=== PATIENT | female | born 1940 | race Caucasian/White ===

== ENCOUNTER 2016-05-14 08:00 | Outpatient (CLI) | payer MEDICARE, OTHER | END 2016-05-14 23:59 | DX: N39.0 Urinary tract infection, site not specified (principal) ==

== ENCOUNTER 2016-05-21 14:04 | Outpatient (CLI) | payer MEDICARE, OTHER | END 2016-05-21 14:05 | disposition home or self-care (01) | DX: N39.0 Urinary tract infection, site not specified (principal) ==

== ENCOUNTER 2016-06-01 05:10 | Emergency (ER) | payer MEDICARE, OTHER ==
[2016-06-01] MEDS ORDERED: diphenhydrAMINE INJ 50 MG/ML VIAL IVP STA (06:27)
[2016-06-01] MEDS ORDERED: diphenhydrAMINE INJ 50 MG/ML VIAL ONE ×2 (06:29→06:30)
[2016-06-01] MEDS ORDERED: IOPAMIDOL-300 100 ML VIAL IVP ONE (07:14)
[2016-06-01] MEDS ORDERED: PROMETHAZINE 25 MG TABLET PO STA (08:00)
[2016-06-01] MEDS ORDERED: PROMETHAZINE 25 MG TABLET ONE (08:09)
[2016-06-01] MEDS ORDERED: traMADol 50 MG TABLET PO ONE (08:17)
[2016-06-01] MEDS ORDERED: traMADol 50 MG TABLET PO STA (08:19)
== END 2016-06-01 08:50 | disposition home or self-care (01) ==
DX: R00.0 Tachycardia, unspecified (principal); R11.0 Nausea; I27.2 Other secondary pulmonary hypertension; R01.1 Cardiac murmur, unspecified; Z96.659 Presence of unspecified artificial knee joint; Z86.718 Personal history of other venous thrombosis and embolism; Z79.01 Long term (current) use of anticoagulants; Z79.82 Long term (current) use of aspirin; I10 Essential (primary) hypertension; Z95.0 Presence of cardiac pacemaker; Z87.891 Personal history of nicotine dependence
CPT/HCPCS: 36415; 71275; 80053; 81003; 83690; 84484; 85025; 93005; 93010; 96374; 99283; 99284; A9270; Q0169; Q9967

== ENCOUNTER 2016-06-19 12:58 | Outpatient (CLI) | payer MEDICARE, OTHER ==
[2016-06-19 18:15] LABS: BASOPHILS # (AUTO) 0.1 10^3/uL (0.0-0.1); BASOPHILS % (AUTO) 1.6 %; EOSINOPHILS # (AUTO) 0.4 10^3/uL (0.0-0.7); EOSINOPHILS % (AUTO) 8.7 %; HGB - HEMOGLOBIN 12.7 g/dL (12.0-16.0); LYMPHOCYTES % (AUTO) 21.6 %; MEAN CORPUSCULAR HEMOGLOBIN 31.1 pg (27.0-31.0); MEAN CORPUSCULAR HGB CONC 33.3 g/dL (32.0-36.0); MEAN CORPUSCULAR VOLUME 93.3 fL (81.0-99.0); MEAN PLATELET VOLUME 8.4 fL (7.9-10.8); MONOCYTES # (AUTO) 0.5 10^3/uL (0.0-1.0); MONOCYTES % (AUTO) 9.5 %; NEUTROPHILS # (AUTO) 2.8 10^3/uL (1.5-6.6); NEUTROPHILS % (AUTO) 58.6 %; NUCLEATED RED BLOOD CELLS AUTO 0.2 /100WBC; RED BLOOD COUNT 4.07 10^6/uL (4.20-5.40); RED CELL DISTRIBUTION WIDTH 15.1 % (12.0-15.0); UNCORRECTED WHITE BLOOD COUNT 4.8 x10^3/uL; WHITE BLOOD COUNT 4.8 x10^3/uL (4.8-10.8)
[2016-06-19 18:22] LABS: ALBUMIN/GLOBULIN RATIO 1.9 (1.0-2.2); BILIRUBIN,TOTAL 0.6 mg/dL (0.2-1.0); CALCIUM 8.8 mg/dL (8.5-10.3); CREATININE 0.6 mg/dL (0.4-1.0); POTASSIUM 3.8 mmol/L (3.5-5.0); TOTAL PROTEIN 6.1 g/dL (6.7-8.2)
[2016-06-19 19:12] LABS: H. PYLORI IGG ANTIBODY Negative (Negative); HPYLORI NEG QC Negative (Negative); HPYLORI POS QC POSITIVE (Positive)
== END 2016-06-19 12:59 | disposition home or self-care (01) ==
LOC: LAB.F 12:58
PROVIDERS: ATTEND Family Medicine
DX: R19.7 Diarrhea, unspecified (principal); R11.0 Nausea
CPT/HCPCS: 36415; 80053; 82150; 83690; 85025; 87339

== ENCOUNTER 2016-06-23 08:00 | Outpatient (CLI) | payer MEDICARE, OTHER | END 2016-06-23 08:01 | disposition home or self-care (01) | DX: R19.7 Diarrhea, unspecified (principal); R11.0 Nausea ==

== ENCOUNTER 2016-07-05 08:13 | Outpatient (CLI) | payer MEDICARE, OTHER | END 2016-07-05 08:14 | disposition home or self-care (01) | DX: K76.0 Fatty (change of) liver, not elsewhere classified (principal) ==

== ENCOUNTER 2016-07-08 18:41 | Emergency (ER) | payer MEDICARE, OTHER ==
[2016-07-08] MEDS ORDERED: CEPHALEXIN 250 MG CAPSULE PO STA (19:30)
[2016-07-08] MEDS ORDERED: CEPHALEXIN 250 MG CAPSULE PO ONE (19:35)
== END 2016-07-08 19:39 | disposition home or self-care (01) ==
DX: L72.3 Sebaceous cyst (principal); I10 Essential (primary) hypertension; Z96.651 Presence of right artificial knee joint; Z95.0 Presence of cardiac pacemaker; Z79.82 Long term (current) use of aspirin; Z87.891 Personal history of nicotine dependence
CPT/HCPCS: 87070; 87205; 99283; A9270

== ENCOUNTER 2016-07-11 | Outpatient (CLI) | payer MEDICARE, OTHER | END 2016-07-11 06:31 | disposition critical access hospital (66) | CPT/HCPCS: A0425; A0433 ==

== ENCOUNTER 2016-08-22 11:32 | Outpatient (CLI) | payer MEDICARE, OTHER | END 2016-08-22 11:33 | disposition home or self-care (01) | DX: R19.7 Diarrhea, unspecified (principal) ==

== ENCOUNTER 2016-08-27 08:00 | Outpatient (CLI) | payer MEDICARE, OTHER | END 2016-08-27 08:01 | disposition home or self-care (01) | DX: R19.7 Diarrhea, unspecified (principal) ==

== ENCOUNTER 2016-09-07 17:34 | Outpatient (CLI) | payer MEDICARE, OTHER | END 2016-09-07 17:35 | disposition critical access hospital (66) | DX: M25.551 Pain in right hip (principal); W01.0XXA Fall on same level from slipping, tripping and stumbling without subsequent striking against object, initial encounter; Y92.009 Unspecified place in unspecified non-institutional (private) residence as the place of occurrence of the external cause | CPT/HCPCS: A0425; A0427 ==

== ENCOUNTER 2016-09-07 17:57 | Inpatient (IN) | payer MEDICARE, OTHER ==
[2016-09-07] MEDS ORDERED: HYDROmorphone 1 MG/ML SYRINGE IVP STA (18:02)
--- NOTE | 2016-09-07 18:04 | ED Physician Documentation ---
PD HPI LOWER EXT INJURY - Stated complaint Stated Complaint: GLF, R HIP PX - Chief complaint Chief Complaint: Ext Problem - History obtained from History obtained from: Patient - History of Present Illness PD HPI LOW EXT INJURY LOCATION: Right, Hip Type of injury: Fall Where injury occurred: Home Timing - onset: Today (slip and fall, isolated R hip inj, pain severe despite 9mg morphine en route.) Timing - details: Abrupt onset, Still present Pain level max: 10 - Additional information Additional information: recent left hip frx with ORIF Review of Systems Ten Systems: 10 systems reviewed and negative Constitutional: reports: Reviewed and negative Ears: reports: Reviewed and negative Throat: reports: Reviewed and negative Cardiac: reports: Reviewed and negative PD PAST MEDICAL HISTORY - Past Medical History Cardiovascular: Hypertension, Murmur, Other Respiratory: None Neuro: Headache/migraine, Other Endocrine/Autoimmune: None GI: None MAINTENANCE PERSON: None : Chronic bladder infection HEENT: Chronic vision loss, Glaucoma, Other Psych: None Musculoskeletal: Osteoarthritis, Fatigue Derm: Herpes zoster - Past Surgical History Past Surgical History: Yes General: Appendectomy Ortho: Knee replacement, Other /MAINTENANCE PERSON: Oophrectomy Cardiovascular: Pacemaker HEENT: Tonsil/Adenoidectomy - Present Medications Home Medications: Ambulatory Orders Medication Instructions Recorded Confirmed Brimonidine Tartrate/Timolol 0 drops EACHEYE BID 11/08/13 07/11/16 [Combigan Eye Drops] Aspirin 81 mg ORAL DAILY 06/21/14 09/07/16 Cholecalciferol (Vitamin D3) 1,000 unit PO DAILY 03/02/16 07/11/16 [Vitamin D3] Gabapentin 600 mg PO BID 03/02/16 07/11/16 Latanoprost 1 drops EACHEYE DAILY 07/08/16 09/07/16 Loteprednol Etabonate [Lotemax] 1 drops LEFTEYE DAILY 07/08/16 09/07/16 Ascorbic Acid [Vitamin C] 1,000 mg PO QID 07/11/16 07/11/16 Carbamazepine [Carbamazepine ER] 100 mg PO TID 07/11/16 07/11/16 Cranberry Fruit Extract [Cranberry] 200 mg PO DAILY 07/11/16 07/11/16 D-Mannose 300 mg PO DAILY 07/11/16 07/11/16 Gabapentin 300 mg PO QDLUNCH 07/11/16 07/11/16 Gabapentin 600 mg PO QDDINNER 07/11/16 07/11/16 Magnesium Oxide [Magnesium] 400 mg PO TID 07/11/16 09/07/16 Melatonin 3 mg PO QPM 07/11/16 09/07/16 Metoprolol Tartrate [Lopressor] 25 mg PO QPM 07/11/16 09/07/16 Propylene Glycol [Systane Balance] 1 drops EACHEYE DAILY 07/11/16 09/07/16 Red Yeast Rice 1,200 mg PO BID 07/11/16 09/07/16 - Allergies Allergies/Adverse Reactions: Allergies Allergy/AdvReac Type Severity Reaction Status Date / Time bee pollen Allergy Anaphylaxis Verified 07/11/16 06:59 guaifenesin [From Mucinex] Allergy Rash Verified 07/11/16 06:59 Penicillins Allergy Rash Verified 07/11/16 06:59 Sulfa (Sulfonamide Allergy Edema Verified 07/11/16 06:59 Antibiotics) - Social History Does the pt smoke?: No Smoking Status: Former smoker Does the pt drink ETOH?: No Does the pt have substance abuse?: Yes - Family History Family history: reports: Non contributory - Immunizations Immunizations are current?: Yes Immunizations: TDAP >10years/unknown - POLST Patient has POLST: No PD ED PE NORMAL - Vitals Vital signs reviewed: Yes - General General: Alert and oriented X 3, No acute distress - HEENT HEENT: PERRL, EOMI - Neck Neck: Supple, no meningeal sign, No bony TTP - Cardiac Cardiac: RRR, No murmur - Respiratory Respiratory: No respiratory distress, Clear bilaterally - Abdomen Abdomen: Normal bowel sounds, Soft, Non tender - Back Back: No CVA TTP, No spinal TTP - Derm Derm: Normal color, Warm and dry - Extremities Extremities: Other (TTP R hip, held flexed, a lot of pain with int/ext rotation) - Neuro Neuro: Alert and oriented X 3, Normal speech - Psych Psych: Normal mood, Normal affect Results - Vitals Vitals: Vital Signs - 24 hr 09/07/16 17:58 Temperature 36.7 C Heart Rate 71 Respiratory 18 Rate Blood Pressure 152/102 H O2 Saturation 96 Oxygen O2 Source [Without Activity] Room air O2 Source Room air - Labs Labs: Laboratory Tests 09/07/16 09/07/16 09/07/16 18:48 18:48 18:48 WBC 7.6 RBC 4.26 Hgb 13.0 Hct 39.3 MCV 92.2 MCH 30.4 MCHC 33.0 RDW 13.9 Plt Count 213 MPV 8.6 Neut # 5.1 Lymph # 1.3 L Walsh # 0.9 Eos # 0.3 Baso # 0.1 Absolute Nucleated RBC 0.01 Nucleated RBCs 0.1 PT 11.5 INR 1.0 Sodium 137 Potassium 3.8 Chloride 106 Carbon Dioxide 24 Anion Gap 7.0 BUN 14 Creatinine 0.4 Estimated GFR (MDRD) 154 Glucose 142 H Calcium 8.6 Total Bilirubin 0.4 AST 25 ALT 28 Alkaline Phosphatase 60 Total Protein 6.3 L Albumin 3.7 Globulin 2.6 Albumin/Globulin Ratio 1.4 Lipase 59 H - Rads (name of study) Hip 2v Right Radiology: EMP read contemporaneously (Mildly displaced R intertroch frx with subtroch extension.) Procedures - Regional nerve block Nerve block site: Femoral Right / left: Right Nerve block anesthesia: Marcaine 0.5% (with epi) Nerve block aftercare: Excellent anesthesia, Other (real time sono guidance) PD MEDICAL DECISION MAKING - Consults Consults: Consulted (name) (Vivek Ignacio, information specialist ortho, admit to medicine, plan for operation tomorrow. 0), Discussed case with (Dr Reyes, hospitalist in person) Departure - Departure Disposition: 66 [facility] DC/Xfer Clinical Impression: Hip fracture Qualifiers: Encounter type: initial encounter Fracture type: closed Laterality: right Qualified Code(s): S72.001A - Fracture of unspecified part of neck of right femur, initial encounter for closed fracture Condition: Serious
[2016-09-07] MEDS ORDERED: HYDROmorphone 1 MG/ML SYRINGE ONE (18:06)
[2016-09-07] MEDS ORDERED: BUPIVACAINE 0.5%-EPI 1:200000 PF 30 ML VIAL ONE (18:27)
[2016-09-07 18:57] LABS: BASOPHILS # (AUTO) 0.1 10^3/uL (0.0-0.1); BASOPHILS % (AUTO) 1.1 %; EOSINOPHILS # (AUTO) 0.3 10^3/uL (0.0-0.7); EOSINOPHILS % (AUTO) 3.4 %; HCT - HEMATOCRIT 39.3 % (37.0-47.0); LYMPHOCYTES # (AUTO) 1.3 10^3/uL (1.5-3.5); LYMPHOCYTES % (AUTO) 16.7 %; MEAN CORPUSCULAR HEMOGLOBIN 30.4 pg (27.0-31.0); MEAN CORPUSCULAR VOLUME 92.2 fL (81.0-99.0); MEAN PLATELET VOLUME 8.6 fL (7.9-10.8); MONOCYTES # (AUTO) 0.9 10^3/uL (0.0-1.0); MONOCYTES % (AUTO) 12.1 %; NEUTROPHILS # (AUTO) 5.1 10^3/uL (1.5-6.6); NEUTROPHILS % (AUTO) 66.7 %; NUCLEATED RED BLOOD CELLS AUTO 0.1 /100WBC; RED BLOOD COUNT 4.26 10^6/uL (4.20-5.40); RED CELL DISTRIBUTION WIDTH 13.9 % (12.0-15.0); UNCORRECTED WHITE BLOOD COUNT 7.6 x10^3/uL; WHITE BLOOD COUNT 7.6 x10^3/uL (4.8-10.8)
[2016-09-07] MEDS ORDERED: ZOLPIDEM 5 MG TABLET PO PRN (18:58)
[2016-09-07] MEDS ORDERED: SODIUM CHLORIDE FLUSH 0.9% 10 ML SYRINGE IVP PRN (18:58)
[2016-09-07] MEDS ORDERED: oxyCODONE 5 MG TABLET PO PRN (18:58)
[2016-09-07] MEDS ORDERED: ONDANSETRON 4 MG/2 ML VIAL IVP PRN (18:58)
[2016-09-07] MEDS ORDERED: PROCHLORPERAZINE 10 MG/2 ML VIAL IVP PRN (18:58)
[2016-09-07 19:03] LABS: PT - PROTHROMBIN TIME 11.5 secs (9.9-12.6)
--- NOTE | 2016-09-07 19:04 | XRAY Preliminary Report ---
Exam: XR Hip w/Pelvis 2-3V RT IMPRESSION: 1. Mildly displaced acute right intertrochanteric fracture with subtrochanteric fracture extension. 2. ORIF left intertrochanteric fracture. [facility] SITE ID: [id number]
--- NOTE | 2016-09-07 19:06 | XRAY Report ---
EXAM: RIGHT HIP RADIOGRAPHY EXAM DATE: 09/07/2016 06:26 PM. CLINICAL HISTORY: Right hip pain after injury. COMPARISON: AP pelvis as part of left hip series 07/11/2016. TECHNIQUE: 3 views including the pelvis. FINDINGS: Bones: Interval intertrochanteric right femoral fracture with subtrochanteric fracture extension and mild ventral displacement of the dominant distal component. Joints: Mild degenerative changes right hip without obvious subluxation. Other: Interval ORIF left intertrochanteric fracture. Stable left hip DJD. IMPRESSION: 1. Mildly displaced acute right intertrochanteric fracture with subtrochanteric fracture extension. 2. ORIF left intertrochanteric fracture. [facility] Referring Provider Line: [phone] SITE ID: [id number]
[2016-09-07 19:08] LABS: ALBUMIN/GLOBULIN RATIO 1.4 (1.0-2.2); BILIRUBIN,TOTAL 0.4 mg/dL (0.2-1.0); CALCIUM 8.6 mg/dL (8.5-10.3); CREATININE 0.4 mg/dL (0.4-1.0); POTASSIUM 3.8 mmol/L (3.5-5.0); TOTAL PROTEIN 6.3 g/dL (6.7-8.2)
[2016-09-07] MEDS ORDERED: ONDANSETRON 4 MG/2 ML VIAL IVP STA (19:27)
[2016-09-07] MEDS ORDERED: ONDANSETRON 4 MG/2 ML VIAL ONE (19:33)
[2016-09-07] MEDS: ACETAMINOPHEN 325 MG TABLET PO PRN (19:58)
[2016-09-07] MEDS: MORPHINE 2 MG/ML SYRINGE IVP PRN ×2 (19:58→22:17)
[2016-09-07] MEDS: SODIUM CHLORIDE 0.9% 1,000 ML IV SCH (19:59)
[2016-09-07] MEDS: GABAPENTIN 300 MG CAPSULE PO SCH (21:33)
[2016-09-07] MEDS: MAGNESIUM OXIDE 400 MG TABLET PO SCH (21:33)
[2016-09-07] MEDS: METOPROLOL TARTRATE 25 MG TABLET PO SCH (21:33)
[2016-09-07] MEDS: SODIUM CHLORIDE FLUSH 0.9% 10 ML SYRINGE IVP SCH (21:50)
--- NOTE | 2016-09-07 23:50 | HISTORY & PHYSICAL EXAMINATION ---
DATE OF ADMISSION: 09/07/2016 PRIMARY CARE PHYSICIAN: Vic Odom MD ADMITTING PHYSICIAN: Rip Reyes MD CHIEF COMPLAINT: Ground-level fall. HISTORY OF PRESENT ILLNESS: The patient is a 76-year-old female, with a past medical history signific ant for hypertension, migraines, glaucoma, sick sinus syndrome, status post pacemaker, GERD, status p ost Memo procedure, osteoarthritis with bilateral knee replacements in 02/2016 and 05/2016, and rec the [facility] hospitalization for left intertrochanteric hip fracture status post nailing in [id number], who was at home recovering from her most recent surgery, when she had a ground-level fall. The patient states that she had been working with Physical Therapy and improving. She states that she had been instructed to switch to a 4-wheeled walker, as she was doing well, from her traditional wal ker. The patient states that she tried to use a 4-wheeled walker for the first time today. She states that she was setting the kitchen table with the 4-wheeled walker, her was a few feet away in the kitchen; her states he turned around, and the patient states she tripped and lost her ba danni and went down to the floor. She states that she landed on her right side. Her got to he r, and she was in excruciating pain. She had difficulty moving her right leg and could not get up bec ause of the pain. Therefore, the called 911, and the patient was brought in to the emergency department. Prior to the fall, the patient states that she was not having any headaches, blurred vision, runny no se, sore throat, cough, nasal congestion, fevers, chills, chest pain, shortness of breath, orthopnea, PND, increased lower extremity swelling, abdominal pain, nausea, vomiting, diarrhea, constipation; u rinary urgency, frequency; dysuria, increased joint swelling, back pain, neck stiffness, change in he r appetite, recent unintentional weight loss, or any focal neurologic deficits. She did state that sh manuel was still recovering from her left hip repair and was still not fully recovered from her knee repla cements but was improving significantly. The patient does admit to having chronic postherpetic neural tremayne after having an episode of shingles in 2014. On presentation to the emergency department, the patient was slightly hypertensive. Otherwise, she wa s afebrile and her vital signs were within normal limits. The patient underwent routine lab work, [facility] showed a normal CBC, normal INR, slightly elevated glucose of 142; otherwise normal electrolytes. The patient underwent x-ray of her right hip, which revealed a mildly displaced acute right intertroc hanteric fracture with subtrochanteric fracture extension, and ORIF left intertrochanteric fracture. The emergency room physician spoke with Dr. Vivek Ignacio, of Orthopedic Surgery, over the phone. Dr. Hayden guerin advised that the patient should be admitted to the hospitalist service, and that he would see h er in consult tomorrow for a repair of her right hip fracture. He stated that he would plan to take h er to the OR tomorrow afternoon, and to keep her n.p.o. after midnight. The patient was admitted to [facility]. PAST MEDICAL HISTORY 1. Hypertension. 2. History of migraine. 3. Glaucoma. 4. Sick sinus syndrome, status post pacemaker. 5. GERD status post Memo procedure. 6. Osteoarthritis of bilateral knees, status post bilateral knee replacements. 7. Recent left intertrochanteric fracture status post ORIF in 07/2016. 8. History of shingles with postherpetic neuralgia. HOME MEDICATIONS 1. Aspirin 81 mg p.o. daily. 2. Red rice 1200 mg p.o. b.i.d. 3. Propylene glycol 1 drop each eye daily. 4. Metoprolol succinate 25 mg p.o. daily. 5. Melatonin 3 mg p.o. q.p.m. 6. Magnesium 400 mg p.o. t.i.d. 7. Lotemax 1 drop left eye daily. 8. Latanoprost 1 drop each eye daily. 9. Gabapentin 600 mg q. morning, 300 mg at lunch, 600 mg in the evening, and 600 mg before dinner. 10. D-Mannose 300 mg p.o. daily. 11. Cranberry 200 mg p.o. daily. 12. Vitamin D3 at 1000 units p.o. daily. 13. Carbamazepine 100 mg p.o. t.i.d. 14. Combigan eyedrops 5 mL each eye b.i.d. 15. Vitamin C 1000 mg p.o. q.i.d. ALLERGIES 1. BEE POLLEN. 2. GUAIFENESIN. 3. PENICILLIN. 4. SULFA. PERSONAL AND SOCIAL HISTORY: The patient lives in [place], [place]; has lived there for the past 25 years. 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 She has 2 biological children, a daughter and a son, and there are 2 stepchildren from her current marriage. She has been to her current since 1991. 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 She was raised in [place]. HABITS: The patient smoked a pack a day for 20 years; she quit over 30 years ago. She does not drink alcohol or use any illicit drugs. FAMILY HISTORY: The patient's father had a stroke at 72. Mother had a stroke at 52. There is also his tory of migraine in the family. She has a brother with a stroke at 58 and a history of Parkinson dise ase. There is no history of diabetes or heart disease or cancer in the family. PHYSICAL EXAMINATION VITAL SIGNS: Temperature 36.7, heart rate 58, blood pressure 154/75, respiratory rate 16, O2 saturati on 95% on room air. GENERAL: Patient is alert, able to answer my questions appropriately. She is in some mild distress se condary to pain. Otherwise, she is not in any acute respiratory or cardiovascular distress. HEENT: Pupils are equal and reactive to light. Extraocular muscles are intact. Mucous membranes are s lightly dry. No conjunctival pallor or scleral icterus noted. NECK: Supple. No thyromegaly. No JVD. Trachea is midline. LYMPH NODES: There is no cervical or axillary lymphadenopathy noted. CARDIOVASCULAR: S1, S2, regular rate and rhythm. No murmurs, rubs, or gallops. LUNGS: Clear to auscultation bilaterally. No wheezes, rhonchi, or crackles. ABDOMEN: Soft, nontender, nondistended. Bowel sounds are present in all 4 quadrants. EXTREMITIES: There is no lower extremity edema. Peripheral pulses are palpable. There is no cyanosis or clubbing. SKIN: There are no skin rashes, lesions, cellulitis, or abscesses noted. MUSCULOSKELETAL: The patient has externally rotated and shortened right lower extremity. She has decr eased range of motion around the right hip. She has surgical scarring of both of her knees from knee replacements. She has decreased range of motion in her left hip but almost back to normal. NEUROLOGIC: The patient is alert and oriented x3. Cranial nerves 2 through 12 grossly intact. Strengt h is grossly normal. Sensations are intact. LABORATORY: WBC 7.6, hemoglobin 13.0, hematocrit 39.3, platelet count 213. INR 1.0. Sodium 137, potas sium 3.8, chloride 106, carbon dioxide 24, BUN 14, creatinine 0.4, glucose 142, calcium 8.6, total bi lirubin 0.4, AST 25, ALT 20, alkaline phos 60, total protein 6.3, albumin 3.7, lipase 59. IMAGING X-RAY OF RIGHT HIP IMPRESSION 1. Mildly displaced acute right intertrochanteric fracture with subtrochanteric fracture extension. 2. ORIF left intertrochanteric fracture. ASSESSMENT AND PLAN: The patient is a 76-year-old female with a past medical history significant for hypertension, postherpetic neuralgia, osteoarthritis status post bilateral knee replacements in 02/28 16 and 05/2016, an unfortunate history of fall and left hip intertrochanteric fracture in 07/2016, [place] now presents with a ground-level fall, having had a right hip intertrochanteric fracture; is being admitted for orthopedic consult and repair of the right hip intertrochanteric fracture. 1. Right hip intertrochanteric fracture with subtrochanteric fracture extension. The patient presente d to the emergency department after a fall at home. It was a mechanical fall while using a walker. Sh manuel has recently had a left intertrochanteric fracture just over 1 month ago, which she had repaired wi th ORIF. She is currently recovering from that, getting PT. Also has had bilateral knee replacements since 02/2016 and then again in 05/2016. The patient also has almost fully recovered from those, but was getting PT. The patient now presents with a ground-level fall, found to have a new right intertro chanteric fracture. The patient is being admitted by the hospitalist team and will have a consult [facility] Orthopedic Surgery to have this hip repaired. The patient's RCRI risk score is 0. Her risk of major cardiac event is 0.4% for this orthopedic proce dure. PLAN: The patient will be given IV pain medication with IV morphine and p.o. oxycodone as needed. The patient did have a nerve block in the emergency department. We will consult Orthopedic Surgery. The patient will be n.p.o. after midnight, likely to go for surgical repair tomorrow afternoon. The patie nt will be given IV fluid prior to the surgery. We will recheck her labs in the morning. We will orde r PT, OT. The patient will be placed on Lovenox post procedure for VTE prophylaxis. 2. Hypertension. The patient has history of hypertension. Blood pressure is slightly elevated on pres entation. This is likely secondary to pain. We will get the patient's pain better controlled and plac e her on her home blood pressure medications. 3. Postherpetic neuralgia. The patient does have history of postherpetic neuralgia after having an ep isode of shingles in 2014. The patient is on gabapentin for this, as well as a carbamazepine. We will continue these medications while the patient is hospitalized. 4. Glaucoma. The patient has history of glaucoma. She is on a number of eye drops for her glaucoma. W e will continue her home eyedrops. 5. Hyperglycemia. The patient's glucose is elevated at 142 on presentation. This may be secondary to the stress response from this acute hip fracture. We will check the patient's hemoglobin A1c and colleen t as needed. 6. Venous thromboembolism prophylaxis. The patient will receive VTE prophylaxis postoperatively. We w ill hold off on giving Lovenox prior to surgery, as there could be increased risk of bleeding during the surgery. The patient is expected to be hospitalized for greater than 2 midnights. JOB #: [id number] EXT JOB #:[id number]
[2016-09-08] MEDS: oxyCODONE 5 MG TABLET PO PRN ×4 (00:23→13:51)
[2016-09-08] MEDS: MAGNESIUM OXIDE 400 MG TABLET PO SCH ×3 (05:32→22:32)
[2016-09-08] MEDS: SODIUM CHLORIDE 0.9% 1,000 ML IV SCH ×2 (05:32→14:54)
[2016-09-08 06:08] LABS: BASOPHILS # (AUTO) 0.1 10^3/uL (0.0-0.1); BASOPHILS % (AUTO) 0.8 %; EOSINOPHILS # (AUTO) 0.2 10^3/uL (0.0-0.7); EOSINOPHILS % (AUTO) 3.4 %; HCT - HEMATOCRIT 37.8 % (37.0-47.0); HGB - HEMOGLOBIN 12.5 g/dL (12.0-16.0); LYMPHOCYTES # (AUTO) 1.1 10^3/uL (1.5-3.5); LYMPHOCYTES % (AUTO) 16.1 %; MEAN CORPUSCULAR HEMOGLOBIN 30.5 pg (27.0-31.0); MEAN CORPUSCULAR VOLUME 92.6 fL (81.0-99.0); MEAN PLATELET VOLUME 8.8 fL (7.9-10.8); MONOCYTES # (AUTO) 0.9 10^3/uL (0.0-1.0); MONOCYTES % (AUTO) 13.5 %; NEUTROPHILS # (AUTO) 4.4 10^3/uL (1.5-6.6); NEUTROPHILS % (AUTO) 66.2 %; RED BLOOD COUNT 4.09 10^6/uL (4.20-5.40); RED CELL DISTRIBUTION WIDTH 14.1 % (12.0-15.0); UNCORRECTED WHITE BLOOD COUNT 6.7 x10^3/uL; WHITE BLOOD COUNT 6.7 x10^3/uL (4.8-10.8)
[2016-09-08 06:13] LABS: PT - PROTHROMBIN TIME 11.6 secs (9.9-12.6)
[2016-09-08 06:14] LABS: ALBUMIN/GLOBULIN RATIO 1.5 (1.0-2.2); BILIRUBIN,TOTAL 0.4 mg/dL (0.2-1.0); CALCIUM 8.3 mg/dL (8.5-10.3); CREATININE 0.4 mg/dL (0.4-1.0); MAGNESIUM 1.8 mg/dL (1.7-2.8); PHOSPHORUS 3.6 mg/dL (2.5-4.6); POTASSIUM 3.8 mmol/L (3.5-5.0); TOTAL PROTEIN 5.6 g/dL (6.7-8.2)
[2016-09-08] MEDS: PANTOPRAZOLE 40 MG TABLET PO SCH (06:42)
[2016-09-08] MEDS: MORPHINE 2 MG/ML SYRINGE IVP PRN ×4 (06:43→13:53)
[2016-09-08] MEDS: SODIUM CHLORIDE FLUSH 0.9% 10 ML SYRINGE IVP SCH ×3 (06:48→22:34)
[2016-09-08] MEDS ORDERED: MINERAL OIL/PETROLAT OPHTH OINT EACHEYE PRN (07:16)
[2016-09-08] MEDS ORDERED: CARBOXYMETHYLCELLULOSE OPHTH DROPS EACHEYE PRN (07:18)
[2016-09-08] MEDS ORDERED: CARBOXYMETHYLCELLULOSE OPHTH DROPS ONE (07:26)
[2016-09-08 08:03] LABS: HEMOGLOBIN A1C 0.41 g/dL
[2016-09-08] MEDS ORDERED: PROPYLENE GLYCOL EACHEYE SCH (09:00)
[2016-09-08] MEDS: GABAPENTIN 300 MG CAPSULE PO SCH ×4 (09:18→22:32)
[2016-09-08] MEDS: ASPIRIN CHEW 81 MG TABLET PO SCH (09:18)
[2016-09-08] MEDS: CHOLECALCIFEROL 1,000 UNIT TABLET PO SCH (09:18)
[2016-09-08] MEDS: Melatonin [Melatonin] 3 MG PO SCH ×2 (09:39→22:33)
[2016-09-08] MEDS: CRANBERRY FRUIT EXTRACT PO SCH (09:40)
[2016-09-08] MEDS: LATANOPROST 0.005% OPHTH DROPS EACHEYE SCH (09:40)
[2016-09-08] MEDS: BRIMONIDINE 0.2% OPHTH DROPS 5 ML EACHEYE SCH ×2 (09:41→22:33)
[2016-09-08] MEDS: Loteprednol Etabonate [Lotemax] LEFTEYE SCH (09:42)
[2016-09-08] MEDS: POLYETHYLENE GLYCOL 3350 17 GM PACKET PO SCH (09:42)
[2016-09-08] MEDS: TIMOLOL 0.5% OPHTH DROPS EACHEYE SCH ×2 (09:43→22:34)
[2016-09-08] MEDS: ACETAMINOPHEN 325 MG TABLET PO PRN (13:52)
[2016-09-08] MEDS: ENOXAPARIN 40 MG/0.4 ML SYRINGE SUBQ SCH (17:34)
--- NOTE | 2016-09-08 18:00 | PROVIDER PROGRESS NOTE ---
Assessment/Plan - Problem List (1) Hip fracture Qualifiers: Encounter type: initial encounter Fracture type: closed Laterality: right Qualified Code(s): S72.001A - Fracture of unspecified part of neck of right femur, initial encounter for closed fracture Assessment/Plan: She is waiting for her surgery doing remarkably wel with the pain. (2) Hypertension Assessment/Plan: she has been controlled as out patient. - Current Meds Current Meds: Current Medications Generic Name Dose Route Start Last Admin Trade Name Freq PRN Reason Stop Dose Admin Acetaminophen 650 mg 09/07/16 18:58 09/08/16 13:52 Tylenol PO 650 mg Q4HR PRN Administration Pain 1 to 4 Aspirin 81 mg 09/08/16 09:00 09/08/16 09:18 [facility] [place] Aspirin PO 81 mg DAILY CAPO Administration Brimonidine Tartrate 1 drops 09/08/16 09:00 09/08/16 09:41 Alphagan P 0.2% Ophth Drops EACHEYE 1 drops BID CAPO Administration Carbamazepine 100 mg 09/07/16 22:00 09/08/16 13:51 Tegretol PO 100 mg TID CAPO Administration Cholecalciferol 1,000 unit 09/08/16 09:00 09/08/16 09:18 Vitamin D3 PO 1,000 unit DAILY CAPO Administration Enoxaparin Sodium 40 mg 09/08/16 17:00 09/08/16 17:34 Lovenox SUBQ Not Given DAILY [facility]O Gabapentin 300 mg 09/08/16 12:00 09/08/16 09:18 Neurontin PO 300 mg QDLUNCH [facility] Administration Gabapentin 600 mg 09/07/16 21:00 09/08/16 09:19 Neurontin PO 600 mg BID CAPO Administration Gabapentin 600 mg 09/08/16 17:00 09/08/16 17:34 Neurontin PO Not Given QDDINNER [facility]O Sodium Chloride 1,000 mls @ 100 mls/hr 09/07/16 19:00 09/08/16 14:54 Normal Saline 0.9% IV 100 mls/hr .Q10H [facility]O Administration Latanoprost 1 drops 09/08/16 09:00 09/08/16 09:40 Xalatan Ophth Drops EACHEYE Not Given DAILY [facility] Magnesium Oxide 400 mg 09/07/16 22:00 09/08/16 13:52 Mag Ox PO 400 mg TID CAPO Administration Metoprolol Tartrate 25 mg 09/07/16 21:00 09/07/16 21:33 Lopressor PO 25 mg QPM [facility] Administration Morphine Sulfate 2 mg 09/07/16 18:58 09/08/16 13:53 Morphine IVP 2 mg Q2HR PRN Administration Pain 8 to 10 Oxycodone HCl 5 mg 09/07/16 18:58 09/07/16 19:58 Roxicodone PO 5 mg Q4HR PRN Administration Pain 5 to 7 Oxycodone HCl 10 mg 09/07/16 18:58 09/08/16 13:51 Roxicodone PO 10 mg Q4HR PRN Administration Pain 8 to 10 Pantoprazole Sodium 40 mg 09/08/16 07:00 09/08/16 06:42 Protonix PO 40 mg QDAC [facility] Administration Cranberry Fruit 1 each 09/08/16 09:00 09/08/16 09:40 Extract [Cranberry] PO Not Given DAILY [facility] Loteprednol 1 each 09/08/16 09:00 09/08/16 09:42 Etabonate [Lotemax] LEFTEYE Not Given DAILY [facility] Melatonin [Melatonin 1 each 09/07/16 21:00 09/08/16 09:39 ] 3 Mg PO Not Given QPM [facility] Polyethylene Glycol 17 gm 09/08/16 09:00 09/08/16 09:42 Miralax PO Not Given DAILY [facility] Sodium Chloride 10 ml 09/07/16 22:00 09/08/16 14:51 Normal Saline Flush 0.9% IVP Not Given Q8HR [facility] Timolol Maleate 1 drops 09/08/16 09:00 09/08/16 09:43 Timoptic 0.5% Ophth Drops EACHEYE Not Given BID [facility] - Lab Result Fish Bone Diagrams: 09/08/16 05:26 09/08/16 05:26 Subjective - Subjective Patient Reports: Resting Comfortably, Pain Nursing Reports: Pain Objective Vital Signs: Vital Signs - 24 hr 09/07/16 09/07/16 09/07/16 19:08 19:50 21:33 Temperature 36.6 C Heart Rate 58 L Heart Rate [ Brachial] Heart Rate [ 57 L Radial] Respiratory 16 14 Rate Blood Pressure 154/75 H 134/76 H Blood Pressure 150/69 H [Right Brachial artery] O2 Saturation 95 96 09/08/16 09/08/16 09/08/16 00:43 04:16 09:09 Temperature 36.7 C 36.4 C L 36.9 C Heart Rate Heart Rate [ 58 L Brachial] Heart Rate [ 60 62 Radial] Respiratory 16 16 16 Rate Blood Pressure Blood Pressure 122/72 115/69 125/72 [Right Brachial artery] O2 Saturation 94 95 94 09/08/16 16:15 Temperature 36.6 C Heart Rate Heart Rate [ 53 L Brachial] Heart Rate [ Radial] Respiratory 18 Rate Blood Pressure Blood Pressure 125/74 [Right Brachial artery] O2 Saturation 95 Oxygen O2 Source Room air I&O (Last 24 Hrs): Intake and Output Totals x24h 09/06/16 09/07/16 09/08/16 23:59 23:59 23:59 Intake Total 148 1742 Output Total 700 500 Balance -552 1242 General: Alert, Oriented x3, Cooperative HEENT: PERRLA, EOMI Neck: No JVD, No thyromegaly Neuro: Alert, Oriented Times 3 Cardiovascular: Regular rate, No murmurs Respiratory: Chest non-tender, No respiratory distress, Breath sounds nml Abdomen: Normal bowel sounds, Soft Extremities: No clubbing, No edema - Results Results: Laboratory Results WBC 6.7 x10^3/uL (4.8-10.8) 09/08/16 05:26 RBC 4.09 10^6/uL (4.20-5.40) L 09/08/16 05:26 Hgb 12.5 g/dL (12.0-16.0) 09/08/16 05:26 Hct 37.8 % (37.0-47.0) 09/08/16 05:26 MCV 92.6 fL (81.0-99.0) 09/08/16 05:26 MCH 30.5 pg (27.0-31.0) 09/08/16 05:26 MCHC 33.0 g/dL (32.0-36.0) 09/08/16 05:26 RDW 14.1 % (12.0-15.0) 09/08/16 05:26 Plt Count 165 10^3/uL (130-450) 09/08/16 05:26 MPV 8.8 fL (7.9-10.8) 09/08/16 05:26 Neut # 4.4 10^3/uL (1.5-6.6) 09/08/16 05:26 Lymph # 1.1 10^3/uL (1.5-3.5) L 09/08/16 05:26 Sharkey # 0.9 10^3/uL (0.0-1.0) 09/08/16 05:26 Eos # 0.2 10^3/uL (0.0-0.7) 09/08/16 05:26 Baso # 0.1 10^3/uL (0.0-0.1) 09/08/16 05:26 Absolute Nucleated RBC 0.00 x10^3/uL 09/08/16 05:26 Nucleated RBCs 0.0 /100WBC 09/08/16 05:26 PT 11.6 secs (9.9-12.6) 09/08/16 05:26 INR 1.0 (0.8-1.2) 09/08/16 05:26 Sodium 136 mmol/L (135-145) 09/08/16 05:26 Potassium 3.8 mmol/L (3.5-5.0) 09/08/16 05:26 Chloride 105 mmol/L (101-111) 09/08/16 05:26 Carbon Dioxide 26 mmol/L (21-32) 09/08/16 05:26 Anion Gap 5.0 (6-13) L 09/08/16 05:26 BUN 13 mg/dL (6-20) 09/08/16 05:26 Creatinine 0.4 mg/dL (0.4-1.0) 09/08/16 05:26 Estimated GFR (MDRD) 154 (>89) 09/08/16 05:26 Glucose 98 mg/dL (70-100) 09/08/16 05:26 Glycated Hemoglobin 5.0 % (4.6-6.2) 09/08/16 05:26 Estim Average Glucose 97 (70-100) 09/08/16 05:26 Calcium 8.3 mg/dL (8.5-10.3) L 09/08/16 05:26 Phosphorus 3.6 mg/dL (2.5-4.6) 09/08/16 05:26 Magnesium 1.8 mg/dL (1.7-2.8) 09/08/16 05:26 Total Bilirubin 0.4 mg/dL (0.2-1.0) 09/08/16 05:26 AST 21 IU/L (10-42) 09/08/16 05:26 ALT 23 IU/L (10-60) 09/08/16 05:26 Alkaline Phosphatase 55 IU/L (42-121) 09/08/16 05:26 Total Protein 5.6 g/dL (6.7-8.2) L 09/08/16 05:26 Albumin 3.4 g/dL (3.2-5.5) 09/08/16 05:26 Globulin 2.2 g/dL (2.1-4.2) 09/08/16 05:26 Albumin/Globulin Ratio 1.5 (1.0-2.2) 09/08/16 05:26 Lipase 59 U/L (22-51) H 09/07/16 18:48 - Procedures Procedures: Procedures REPOSITION LEFT UPPER FEMUR WITH INT FIX, OPEN APPROACH (07/11/16) TRANSFUSE NONAUT RED BLOOD CELLS IN PERIPH VEIN, PERC (07/11/16)
[2016-09-08] MEDS ORDERED: SODIUM CHLORIDE 0.9% 400 ML IV ONE (18:54)
[2016-09-08] MEDS ORDERED: BUPIVACAINE 0.25%-EPI 1:200000 PF 30 ML VIAL SUBQ ONE (19:50)
[2016-09-08] MEDS ORDERED: LACTATED RINGERS 1,000 ML IV ONE ×2 (19:51→21:38)
[2016-09-08] MEDS ORDERED: LIDOCAINE-MPF 2% 5 ML VIAL IM ONE (21:00)
[2016-09-08] MEDS ORDERED: SUCCINYLCHOLINE 200 MG/10 ML VIAL IVP ONE (21:00)
[2016-09-08] MEDS ORDERED: ePHEDrine 50 MG/ML AMP IVP ONE (21:00)
[2016-09-08] MEDS ORDERED: ROCURONIUM 50 MG/5 ML VIAL IVP ONE (21:00)
[2016-09-08] MEDS ORDERED: PROPOFOL 200 MG/20 ML VIAL IVP ONE (21:00)
[2016-09-08] MEDS ORDERED: MIDAZOLAM 2 MG/2 ML VIAL IVP ONE (21:00)
[2016-09-08] MEDS ORDERED: fentaNYL 100 MCG/2 ML VIAL IVP ONE (21:00)
[2016-09-08] MEDS ORDERED: ONDANSETRON 4 MG/2 ML VIAL IVP ONE (21:00)
[2016-09-08] MEDS ORDERED: DEXAMETHASONE 4 MG/ML VIAL IVP ONE (21:00)
[2016-09-08] MEDS ORDERED: ACETAMINOPHEN 1,000 MG/100 ML 100 ML IV PRN (21:06)
--- NOTE | 2016-09-08 21:15 | OPERATIVE REPORT ---
Surgery Post-Op - General Admit Date: 09/07/16 Procedure Date: 09/08/16 Pre-Op Diagnosis: Right Hip Intertrochanteric Fracture. Operative Procedure: Right Hip Cephalomedullary Nailing. Post-Op Diagnosis: Same. - Procedure Note Anesthesia Technique: Primary Surgeon: Alan Ignacio MD Pathology: Same. Estimated Blood Loss (in cc): 400 Drain/Tube Type: positive: Other (None.) Complications: None. - Other Other Information/Narrative: Fluids: 1900 mL LR Condition: Stable. Disposition: PACU >> MedSurg.
[2016-09-08] MEDS: fentaNYL 100 MCG/2 ML VIAL ONE ×2 (21:21→21:27)
--- NOTE | 2016-09-08 21:42 | XRAY Preliminary Report ---
Exam: XR Hip w/Pelvis 2-3V RT IMPRESSION: Fluoroscopic guidance provided for Dr. Ignacio. Total fluoroscopy time: 00:47 seconds . 1 6.142 M Snyder Number of images: 5. [facility] SITE ID: [id number]
--- NOTE | 2016-09-08 21:44 | XRAY Report ---
EXAM: FLUOROSCOPIC GUIDANCE EXAM DATE: 09/08/2016 06:00 PM. CLINICAL HISTORY: ORIF HIP PINNING. COMPARISON: None. FINDINGS: Localization for open reduction internal fixation hip IMPRESSION: Fluoroscopic guidance provided for Dr. Ignacio. Total fluoroscopy time: 00:47 seconds . 1 6.142 M Snyder Number of images: 5. [facility] Referring Provider Line: [phone] SITE ID: [id number]
[2016-09-08] MEDS: HYDROmorphone 1 MG/ML SYRINGE IVP PRN (22:36)
[2016-09-08] MEDS: METOPROLOL TARTRATE 25 MG TABLET PO SCH (22:39)
[2016-09-09] MEDS: HYDROmorphone 1 MG/ML SYRINGE IVP PRN ×3 (03:35→17:45)
[2016-09-09] MEDS: SODIUM CHLORIDE 0.9% 1,000 ML IV SCH ×3 (04:16→17:44)
[2016-09-09 06:23] LABS: BASOPHILS % (AUTO) 0.5 %; EOSINOPHILS % (AUTO) 0.6 %; HCT - HEMATOCRIT 30.3 % (37.0-47.0); HGB - HEMOGLOBIN 10.1 g/dL (12.0-16.0); LYMPHOCYTES # (AUTO) 0.6 10^3/uL (1.5-3.5); LYMPHOCYTES % (AUTO) 8.6 %; MEAN CORPUSCULAR HEMOGLOBIN 30.8 pg (27.0-31.0); MEAN CORPUSCULAR HGB CONC 33.2 g/dL (32.0-36.0); MEAN CORPUSCULAR VOLUME 92.8 fL (81.0-99.0); MEAN PLATELET VOLUME 8.9 fL (7.9-10.8); MONOCYTES # (AUTO) 1.1 10^3/uL (0.0-1.0); MONOCYTES % (AUTO) 14.2 %; NEUTROPHILS # (AUTO) 5.7 10^3/uL (1.5-6.6); NEUTROPHILS % (AUTO) 76.1 %; NUCLEATED RED BLOOD CELLS AUTO 0.1 /100WBC; RED BLOOD COUNT 3.26 10^6/uL (4.20-5.40); RED CELL DISTRIBUTION WIDTH 13.9 % (12.0-15.0); UNCORRECTED WHITE BLOOD COUNT 7.5 x10^3/uL; WHITE BLOOD COUNT 7.5 x10^3/uL (4.8-10.8)
[2016-09-09 06:36] LABS: ALBUMIN/GLOBULIN RATIO 1.5 (1.0-2.2); BILIRUBIN,TOTAL 0.5 mg/dL (0.2-1.0); CALCIUM 7.8 mg/dL (8.5-10.3); CREATININE 0.4 mg/dL (0.4-1.0); MAGNESIUM 1.6 mg/dL (1.7-2.8); PHOSPHORUS 3.3 mg/dL (2.5-4.6); POTASSIUM 4.2 mmol/L (3.5-5.0); TOTAL PROTEIN 4.7 g/dL (6.7-8.2)
[2016-09-09] MEDS: MAGNESIUM OXIDE 400 MG TABLET PO SCH ×3 (06:45→20:48)
[2016-09-09] MEDS: oxyCOD/ACETAMIN 5 MG/325 MG TABLET PO PRN ×4 (06:46→20:29)
[2016-09-09] MEDS: PANTOPRAZOLE 40 MG TABLET PO SCH (06:48)
[2016-09-09] MEDS: SODIUM CHLORIDE FLUSH 0.9% 10 ML SYRINGE IVP SCH ×3 (06:48→20:59)
[2016-09-09] MEDS: POLYETHYLENE GLYCOL 3350 17 GM PACKET PO SCH (10:05)
[2016-09-09] MEDS: ASPIRIN CHEW 81 MG TABLET PO SCH (10:06)
[2016-09-09] MEDS: CHOLECALCIFEROL 1,000 UNIT TABLET PO SCH (10:06)
[2016-09-09] MEDS: BRIMONIDINE 0.2% OPHTH DROPS 5 ML EACHEYE SCH ×2 (10:06→20:38)
[2016-09-09] MEDS: GABAPENTIN 300 MG CAPSULE PO SCH ×4 (10:06→20:29)
[2016-09-09] MEDS: ENOXAPARIN 40 MG/0.4 ML SYRINGE SUBQ SCH (10:07)
[2016-09-09] MEDS: LATANOPROST 0.005% OPHTH DROPS EACHEYE SCH (10:07)
[2016-09-09] MEDS: Loteprednol Etabonate [Lotemax] LEFTEYE SCH (10:08)
[2016-09-09] MEDS: CRANBERRY FRUIT EXTRACT PO SCH (10:08)
[2016-09-09] MEDS: TIMOLOL 0.5% OPHTH DROPS EACHEYE SCH ×2 (10:09→20:39)
--- NOTE | 2016-09-09 12:18 | PROVIDER PROGRESS NOTE ---
Subjective - Prog Note Date Prog Note Date: 09/09/16 Prog Note Time: 12:16 - Subjective Pt reports feeling: Improved Subjective: she is very unhappy at all of this. She's had 2 knee replacements, a previous hip fracture repair after a fall, and now this. She uses her thumb and index finger to demonstrate a really tiny space and say "I am this far from falling apart and getting completely depressed " and says this with tears in her eyes She denies chest pain, shortness of breath. Pain at the incision site is controlled. For rehabilitation, she identifies [facility] as the halfway facility she wants to go to Current Medications - Current Medications Current Medications: Active Medications Acetaminophen (Tylenol) 650 mg PO Q4HR PRN PRN Reason: Pain 1 to 4 Last Admin: 09/08/16 13:52 Dose: 650 mg Aspirin ([place] Aspirin) 81 mg PO DAILY [facility] Last Admin: 09/09/16 10:06 Dose: 81 mg Brimonidine Tartrate (Alphagan P 0.2% Ophth Drops) 1 drops EACHEYE BID [facility] Last Admin: 09/09/16 10:06 Dose: 1 drops Carbamazepine (Tegretol) 100 mg PO TID [facility] Last Admin: 09/09/16 06:45 Dose: 100 mg Carboxymethylcellulose (Refresh 1% Ophth Drops) 1 drops EACHEYE PRN PRN PRN Reason: Dry Eye Last Admin: 09/09/16 03:35 Dose: 1 drops Cholecalciferol (Vitamin D3) 1,000 unit PO DAILY [facility] Last Admin: 09/09/16 10:06 Dose: 1,000 unit Enoxaparin Sodium (Lovenox) 40 mg SUBQ DAILY [facility] Last Admin: 09/09/16 10:07 Dose: 40 mg Gabapentin (Neurontin) 300 mg PO QDLUNCH [facility] Last Admin: 09/09/16 12:08 Dose: 300 mg Gabapentin (Neurontin) 600 mg PO BID [facility] Last Admin: 09/09/16 10:06 Dose: 600 mg Gabapentin (Neurontin) 600 mg PO QDDINNER [facility] Last Admin: 09/08/16 17:34 Dose: Not Given Hydromorphone HCl (Dilaudid Inj) 1 mg IVP Q2HR PRN PRN Reason: Breakthrough Pain Last Admin: 09/09/16 03:35 Dose: 1 mg Sodium Chloride (Normal Saline 0.9%) 1,000 mls @ 100 mls/hr IV .Q10H [facility] Last Admin: 09/09/16 08:26 Dose: 100 mls/hr Acetaminophen (Ofirmev) 100 mls @ 400 mls/hr IV Q6HR PRN PRN Reason: PAIN Latanoprost (Xalatan Ophth Drops) 1 drops EACHEYE DAILY [facility] Last Admin: 09/09/16 10:07 Dose: 1 drops Magnesium Oxide (Mag Ox) 400 mg PO TID [facility] Last Admin: 09/09/16 06:45 Dose: 400 mg Metoprolol Tartrate (Lopressor) 25 mg PO QPM [facility] Last Admin: 09/08/16 22:39 Dose: 25 mg Multi-Ingred Cream/Lotion/Oil/Oint (Lubrifresh Pm Ophth Oint) 1 applic EACHEYE QPM PRN PRN Reason: Dry Eye Ondansetron HCl (Zofran Inj) 4 mg IVP Q6HR PRN PRN Reason: Nausea / Vomiting Oxycodone/Acetaminophen (Percocet 5 Mg/325 Mg) 1 tab PO Q4HR PRN PRN Reason: Breakthrough Pain Last Admin: 09/09/16 11:00 Dose: 1 tab Pantoprazole Sodium (Protonix) 40 mg PO QDAC [facility] Last Admin: 09/09/16 06:48 Dose: 40 mg Cranberry Fruit (Extract [Cranberry]) 1 each PO DAILY [facility] Last Admin: 09/09/16 10:08 Dose: 1 each Loteprednol (Etabonate [Lotemax]) 1 each LEFTEYE DAILY [facility] Last Admin: 09/09/16 10:08 Dose: 1 each Melatonin [Melatonin (] 3 Mg) 1 each PO QPM [facility] Last Admin: 09/08/16 22:33 Dose: 1 each Polyethylene Glycol (Miralax) 17 gm PO DAILY [facility] Last Admin: 09/09/16 10:05 Dose: 17 gm Prochlorperazine Edisylate (Compazine Inj) 10 mg IVP Q6HR PRN PRN Reason: Nausea / Vomiting Sodium Chloride (Normal Saline Flush 0.9%) 10 ml IVP PRN PRN PRN Reason: NEEDED PER PROVIDER ORDERS Last Admin: 09/09/16 08:26 Dose: 10 ml Sodium Chloride (Normal Saline Flush 0.9%) 10 ml IVP Q8HR [facility] Last Admin: 09/09/16 06:48 Dose: Not Given Timolol Maleate (Timoptic 0.5% Ophth Drops) 1 drops EACHEYE BID [facility] Last Admin: 09/09/16 10:09 Dose: 1 drops Zolpidem Tartrate (Ambien) 5 mg PO QPM PRN PRN Reason: Insomnia Brimonidine Tartrate/Timolol [Combigan Eye Drops] 1 drops EACHEYE BID 11/08/13 Aspirin 81 mg ORAL DAILY 06/21/14 Cholecalciferol (Vitamin D3) [Vitamin D3] 1,000 unit PO DAILY 03/02/16 Gabapentin 600 mg PO BID 03/02/16 Latanoprost 1 drops EACHEYE DAILY 07/08/16 Loteprednol Etabonate [Lotemax] 1 drops LEFTEYE DAILY 07/08/16 Ascorbic Acid [Vitamin C] 1,000 mg PO QID 07/11/16 Carbamazepine [Carbamazepine ER] 100 mg PO TID 07/11/16 Cranberry Fruit Extract [Cranberry] 200 mg PO DAILY 07/11/16 D-Mannose 300 mg PO DAILY 07/11/16 Gabapentin 300 mg PO QDLUNCH 07/11/16 Gabapentin 600 mg PO QDDINNER 07/11/16 Magnesium Oxide [Magnesium] 400 mg PO TID 07/11/16 Melatonin 3 mg PO QPM 07/11/16 Metoprolol Tartrate [Lopressor] 25 mg PO QPM 07/11/16 Propylene Glycol [Systane Balance] 1 drops EACHEYE DAILY 07/11/16 Red Yeast Rice 1,200 mg PO BID 07/11/16 Objective - Vital Signs/Intake & Output Reviewed Vital Signs: Yes Vital Signs: Vital Signs x48h Temp Pulse Resp BP Pulse Ox 09/09/16 11:48 67 117/72 09/09/16 11:47 67 105/67 97 09/09/16 09:00 37 C 58 L 20 108/68 96 09/09/16 06:46 37.0 C 61 16 102/65 94 Intake & Output: Intake & Output 09/06/16 09/07/16 09/08/16 09/09/16 23:59 23:59 23:59 23:59 Intake Total 148 2229 1179 Output Total 700 500 350 Balance -552 1729 829 - Objective General Appearance: positive: Alert, Mild distress (emotionally), Other (mildly overweight elderly female who looks stated age) Eyes Bilateral: positive: PERRL, EOMI ENT: positive: Pharynx nml Neck: positive: No JVD. negative: Stiff neck, Carotid bruit Respiratory: negative: Chest non-tender, Wheezes, Rales, Rhonchi Cardiovascular: positive: Regular rate & rhythm, No murmur. negative: Gallop/S4 , Friction rub Abdomen: positive: Non-tender, No organomegaly, Nml bowel sounds, No distention Skin: positive: Warm, Dry, Other (she has a small incision over lateral right hip and lateral right knee, closed, no swelling or warmth or redness) Extremities: positive: Non-tender, Pedal edema (of involved leg) Neurologic/Psychiatric: positive: Oriented x3, CN's nml (2-12), Motor nml - Lab Results Fish Bones: 09/09/16 05:38 09/09/16 05:38 Other Labs: Lab Results x24hrs 09/09/16 09/09/16 Range/Units 05:38 05:38 WBC 7.5 (4.8-10.8) x10^3/uL RBC 3.26 L (4.20-5.40) 10^6/uL Hgb 10.1 L (12.0-16.0) g/dL Hct 30.3 L (37.0-47.0) % MCV 92.8 (81.0-99.0) fL MCH 30.8 (27.0-31.0) pg MCHC 33.2 (32.0-36.0) g/dL RDW 13.9 (12.0-15.0) % Plt Count 145 (130-450) 10^3/uL MPV 8.9 (7.9-10.8) fL Neut # 5.7 (1.5-6.6) 10^3/uL Lymph # 0.6 L (1.5-3.5) 10^3/uL [place] # 1.1 H (0.0-1.0) 10^3/uL Eos # 0.0 (0.0-0.7) 10^3/uL Baso # 0.0 (0.0-0.1) 10^3/uL Absolute Nucleated RBC 0.01 x10^3/uL Nucleated RBCs 0.1 /100WBC Sodium 135 (135-145) mmol/L Potassium 4.2 (3.5-5.0) mmol/L Chloride 105 (101-111) mmol/L Carbon Dioxide 25 (21-32) mmol/L Anion Gap 5.0 L (6-13) BUN 11 (6-20) mg/dL Creatinine 0.4 (0.4-1.0) mg/dL Estimated GFR (MDRD) 154 (>89) Glucose 126 H (70-100) mg/dL Calcium 7.8 L (8.5-10.3) mg/dL Phosphorus 3.3 (2.5-4.6) mg/dL Magnesium 1.6 L (1.7-2.8) mg/dL Total Bilirubin 0.5 (0.2-1.0) mg/dL AST 15 (10-42) IU/L ALT 17 (10-60) IU/L Alkaline Phosphatase 50 (42-121) IU/L Total Protein 4.7 L (6.7-8.2) g/dL Albumin 2.8 L (3.2-5.5) g/dL Globulin 1.9 L (2.1-4.2) g/dL Albumin/Globulin Ratio 1.5 (1.0-2.2) Assessment/Plan - Problem List (1) Displaced intertrochanteric fracture of right femur Impression: from a ground level fall tripping over a walker. OR last night. POD #1. Dr. Ignacio feels she can go to SNF when she can get up with a walker. he wants to see her in clinic in 2 weeks. she has no ronny. dressings can come off of all her wounds and can shower in 3 days. keep clean and dry. I will order PT Qualifiers: Encounter type: initial encounter Fracture type: closed Qualified Code(s) : S72.141A - Displaced intertrochanteric fracture of right femur, initial encounter for closed fracture (2) Hypertension Impression: systolic 102 to 117. on lopressor at home and on it here. Qualifiers: Hypertension type: essential hypertension Qualified Code(s): I10 - Essential (primary) hypertension (3) Prophylactic use of low molecular weight heparin for venous thromboembolism Impression: because of her prolonged immobility, will need prophylaxis for DVT and Dr. Ignacio would like 30 days at discharge. (4) Post herpetic neuralgia Impression: tegretol and gabapentin at home and here. (5) Situational depression Impression: supportive conversation. Social Service will also speak to her as well.
--- NOTE | 2016-09-09 13:00 | XRAY Report ---
[facility]: 09/08/2016 Fluoroscopy time only, no images submitted for interpretation. Fluoroscopy time 0 minutes, 47 seconds. [facility]
[2016-09-09] MEDS: METOPROLOL TARTRATE 25 MG TABLET PO SCH (20:29)
[2016-09-09] MEDS: Melatonin [Melatonin] 3 MG PO SCH (20:39)
[2016-09-10] MEDS: SODIUM CHLORIDE 0.9% 1,000 ML IV SCH (02:46)
[2016-09-10] MEDS: oxyCOD/ACETAMIN 5 MG/325 MG TABLET PO PRN ×3 (02:46→10:34)
[2016-09-10] MEDS: SODIUM CHLORIDE FLUSH 0.9% 10 ML SYRINGE IVP SCH (05:13)
[2016-09-10 05:55] LABS: BASOPHILS % (AUTO) 0.8 %; EOSINOPHILS # (AUTO) 0.5 10^3/uL (0.0-0.7); EOSINOPHILS % (AUTO) 7.9 %; HCT - HEMATOCRIT 26.9 % (37.0-47.0); HGB - HEMOGLOBIN 8.9 g/dL (12.0-16.0); LYMPHOCYTES # (AUTO) 0.9 10^3/uL (1.5-3.5); LYMPHOCYTES % (AUTO) 15.4 %; MEAN CORPUSCULAR HEMOGLOBIN 30.7 pg (27.0-31.0); MEAN CORPUSCULAR HGB CONC 33.3 g/dL (32.0-36.0); MEAN CORPUSCULAR VOLUME 92.4 fL (81.0-99.0); MEAN PLATELET VOLUME 9.1 fL (7.9-10.8); MONOCYTES # (AUTO) 1.1 10^3/uL (0.0-1.0); MONOCYTES % (AUTO) 18.4 %; NEUTROPHILS # (AUTO) 3.4 10^3/uL (1.5-6.6); NEUTROPHILS % (AUTO) 57.5 %; NUCLEATED RED BLOOD CELLS AUTO 0.1 /100WBC; RED BLOOD COUNT 2.91 10^6/uL (4.20-5.40); RED CELL DISTRIBUTION WIDTH 14.3 % (12.0-15.0); UNCORRECTED WHITE BLOOD COUNT 5.9 x10^3/uL; WHITE BLOOD COUNT 5.9 x10^3/uL (4.8-10.8)
[2016-09-10 06:09] LABS: ALBUMIN/GLOBULIN RATIO 1.4 (1.0-2.2); BILIRUBIN,TOTAL 0.4 mg/dL (0.2-1.0); CALCIUM 7.6 mg/dL (8.5-10.3); CREATININE 0.4 mg/dL (0.4-1.0); MAGNESIUM 1.7 mg/dL (1.7-2.8); PHOSPHORUS 2.4 mg/dL (2.5-4.6); TOTAL PROTEIN 4.6 g/dL (6.7-8.2)
[2016-09-10] MEDS: MAGNESIUM OXIDE 400 MG TABLET PO SCH (06:36)
[2016-09-10] MEDS: PANTOPRAZOLE 40 MG TABLET PO SCH (06:36)
[2016-09-10] MEDS ORDERED: SENNA 8.6 MG TABLET PO SCH (09:00)
[2016-09-10] MEDS ORDERED: DOCUSATE SODIUM 250 MG CAPSULE PO SCH (09:00)
--- NOTE | 2016-09-10 09:26 | Discharge Plan ---
Discharge Plan Disposition: 03 DC/Xfer Condition: Good Prescriptions: HYDROmorphone [Dilaudid] 1 mg PO Q4H #10 tablet No Smoking: If you smoke, Please STOP! Call for help.
[2016-09-10] MEDS: CHOLECALCIFEROL 1,000 UNIT TABLET PO SCH (09:44)
[2016-09-10] MEDS: GABAPENTIN 300 MG CAPSULE PO SCH ×2 (09:44→12:45)
[2016-09-10] MEDS: ENOXAPARIN 40 MG/0.4 ML SYRINGE SUBQ SCH (09:45)
[2016-09-10] MEDS: ASPIRIN CHEW 81 MG TABLET PO SCH (09:45)
[2016-09-10] MEDS: Loteprednol Etabonate [Lotemax] LEFTEYE SCH (09:46)
[2016-09-10] MEDS: CRANBERRY FRUIT EXTRACT PO SCH (09:46)
[2016-09-10] MEDS: TIMOLOL 0.5% OPHTH DROPS EACHEYE SCH (09:47)
[2016-09-10] MEDS: BRIMONIDINE 0.2% OPHTH DROPS 5 ML EACHEYE SCH (09:48)
[2016-09-10] MEDS: POLYETHYLENE GLYCOL 3350 17 GM PACKET PO SCH (09:50)
[2016-09-10] MEDS: HYDROmorphone 1 MG/ML SYRINGE IVP PRN (10:36)
[2016-09-10] MEDS: LATANOPROST 0.005% OPHTH DROPS EACHEYE SCH (10:38)
[2016-09-10 12:29] VITALS: BP 92/56
--- NOTE | 2016-09-10 20:50 | DISCHARGE SUMMARY ---
DATE OF ADMISSION: 09/07/2016 DATE OF DISCHARGE: 09/10/2016 DISCHARGE DIAGNOSES: 1. Displaced intratrochanteric fracture of the right femur. Initial encounter for closed fracture. 2. Essential hypertension. 3. Postherpetic neuralgia. 4. Adjustment disorder with depressed mood. 5. Glaucoma. 6. Type 2 diabetes mellitus, controlled. DISCHARGE MEDICATIONS: 1. Aspirin 81 mg a day. 2. Carbamazepine extended release 100 mg p.o. t.i.d.. 3. Brimonidine with Timolol eyedrops 1 drop each eye b.i.d.. 4. Lotemax eyedrops 1 drop left eye daily. 5. Latanoprost 1 drop each eye daily. 6. Cranberry fruit extract 200 mg capsule daily. 7. Gabapentin 600 mg p.o. b.i.d. with gabapentin 600 mg at dinner, and 300 mg at lunch. 8. Lopressor 25 mg p.o. q.p.m.. 9. Magnesium 400 mg p.o. t.i.d.. 10. Melatonin 3 mg p.o. q.p.m. 11. Red yeast rice 1200 mg p.o. b.i.d.. 12. Vitamin D 1000 units daily. 13. Dilaudid 1 mg p.o. q.4h. hours p.r.n.. 14. Lovenox 40 mg subcutaneous daily for the next 30 days. PRINCIPAL PROCEDURE: Right hip cephalomedullary nailing on 09/08/2016. HOSPITAL COURSE: The patient is a sylvia 76-year-old female who has history of hypertension, migraine s, glaucoma, sick sinus syndrome, has had a pacemaker. She also has reflux disease with a Memo, and has osteoarthritis with bilateral knee replacements in February 2016 and May 2016. She fell in [facility] 2016 and ended up having an intratrochanteric hip fracture with a nailing. She was at home recove ring from her most recent surgery and had transitioned to walking with a 4-wheeled walker. While mick rosenberg in her kitchen she fell after losing her balance and went down to the floor. She landed on her r ight side and now has a new hip fracture. Preoperatively, she had no increased risk for revised cardiac risk index score of 0. Her risk of ata r cardiac event was 0.4%. During her stay, blood pressure was controlled. She is felt to have type 2 diabetes mellitus that is diet controlled, with a fasting glucose of 142. Glaucoma eyedrops were continued. Antihypertensive me dications were continued, and because she has had so many orthopedic procedure, she is felt to be at increased risk for DVT and was kept on Lovenox indefinitely. Dr. Ignacio wished her to be on Lovenox f or the next 30 days. She went to the OR and had no complications. Postoperatively, she did well. She is tearful and slight ly depressed when she thinks about all the things that she has done in the last few months with alexa ds to being in the hospital, then rehabilitation. She is not felt to need an antidepressant at this t mary. She identified [facility] or [place] as the facility she would like to go to for rehabilitation again. She was discharged in stable condition today. She says the pain is controlled as long she does not luu ve to move her hip very much. She is able to stand and weightbear at this time. Physical therapy desc ribes her as able to perform a sit to stand with minimum assist. She needs verbal cues for hand place ment and pushing her lower extremity. She is able to stand and weightbear on the right lower extremi ty, and uses her left to pivot. Physical therapy recommends continued PT while she is here until she can go to rehabilitation, and recommends transfer to half-way facility after hospital stay for continued rehabilitation to regain her independence. It is anticipated she will return to home to [facility] with her independently. At discharge, temperature was 36.8, pulse is 67, blood pressure 92/56. She was 16 respirations and 94 % on room air. She is an alert, oriented, elderly female who is well groomed, well nourished. Speech is normal. LUNGS: Clear. She has a regular rate and rhythm. A benign abdomen. Only slight left leg ed gisele that is nonpitting. Dr. Ignacio has stated that he would like to see her in 2 weeks. She has no ronny in her wounds, and she just needs to keep her wounds clean and dry. Dressings can come off and she can shower tomorrow. Because of her prolonged immobility with her most recent surgeries he would like Lovenox for the nex t 30 days. During her stay, post-herpetic neuralgia was controlled, continued on Tegretol and gabapentin. Greater than 30 minutes was spent coordinating discharge for this patient to a half-way facili . JOB #: [id number] EXT JOB #:[id number]
--- NOTE | 2016-09-30 10:06 | OPERATIVE REPORT ---
DATE OF SURGERY: 09/08/2016 00:00:00 PREOPERATIVE DIAGNOSIS: Right hip intertrochanteric fracture. POSTOPERATIVE DIAGNOSIS: Right hip intertrochanteric fracture. PROCEDURE PERFORMED: Right hip cephalomedullary nailing. SURGEON: Alan Ignacio MD. SPONGE AND NEEDLE COUNTS: Correct. MATERIAL TO LAB: None. CONDITION AT END OF PROCEDURE: Stable. ANESTHESIA: General endotracheal. PATHOLOGY: Same. BLOOD LOSS: 400 mL. DRAINS: None. COMPLICATIONS: None. DISPOSITION: PACU, then Med/Surg. INDICATIONS: This is a 76-year-old female who had sustained a right hip intertrochanteric fracture in a ground level fall. She was stabilized in the emergency room and admitted to the medical/surgical u [facility] by the hospitalist and Orthopedic Surgery was consulted. On discussion with the patient and her f amily, it was decided to bring her to the operating room to perform a cephalomedullary nailing of the right hip. PROCEDURE IN DETAIL: After consent and identification, the patient was brought to the operating room in the supine position on the operating litter. After induction of general endotracheal anesthesia an d appropriate monitoring, the patient was transferred to the fracture table. A padded perineal post w as placed. The right arm was pulled across the body and secured to the opposite side of the table wit h padding over the elbow. The left arm was placed outstretched on an arm board. The left lower extrem ity was placed in a padded Pranay boot and stirrup. The right lower extremity was placed in the tracti on boom with padding around the foot and ankle. The right lower extremity was then slightly abducted and internally rotated. Using fluoroscopic imaging, we performed a reduction giving an anatomic appearance of the fracture in both the AP and lateral fluoroscopy projections. We then prepped and draped the right hip free for c ephalomedullary nailing using the shower curtain. After an appropriate timeout was conducted, we made an incision superior to the tip of the greater tr ochanter measuring approximately 4.5 cm in length through the skin and subcutaneous tissue down to th e external fascia of the gluteus medius muscle. The fascia was penetrated and digital separation of t he muscle fibers was used to dissect down to the tip of the greater trochanter. We palpated the pirif ormis fossa and selected a starting point just anterior to the piriformis fossa at the trochanteric c rest. Guide pin was inserted and advanced by hand easily through the osteopenic bone into the medulla ry canal. We overreamed the guidewire with a 15 mm starting reamer. The reamer and guidewire were rem volodymyr. A long ball-tipped guidewire was then inserted down the femoral shaft and verified on AP and la teral fluoroscopy. We reamed over the ball tip guide up to a 12.5 mm diameter. We selected an 11.5 mm cephalomedullary nail with 38 cm length. This was assembled to the insertion tower and inserted over the guidewire. The guidewire was removed and we verified the position of the cephalomedullary nail o n AP fluoroscopy. We then used the insertion tower to localize the starting point on the lateral thig h. A small 1.5 cm incision was made with a #15 blade scalpel through the skin and subcutaneous tissue and the iliotibial band. We advanced the guidewire through the lateral cortex of the femur using the cannulated guide up into the neck of the femur verifying the position of the guidewire on AP and lat eral fluoroscopy. We then measured and selected a 10.5 mm lag screw by 110 mm in length, inserted thi s to the T-handle and inserted it over the guidewire. The guidewire was then removed. We verified the position of the lag screw as being center-center on AP and lateral fluoroscopy. Our tip apex distanc e looked to measure under 1 cm. We then inserted a locking screw through the top of the insertion tower using the T-handle screwdrive r. This was advanced down to lock onto the lag screw and then backed off by 1/4 turn to allow settlin g. We then removed the guide tower. We then loosened the traction boom and abducted the right lower e xtremity. Using a perfect circles technique, we inserted one each 5 mm diameter x 40 mm length distal locking screw through the dynamic hole and the distal nail from lateral to medial. All incisions were then irrigated. Incisions were closed with interrupted 2-0 Vicryl subcuticular sutures. Steri-Strips were used to the dermis. The proximal incision was closed with a 3-0 running Monocryl dermal stitch. Steri-Strips wer e then applied. [place] dressings were applied to all 3 wounds. Final fluoroscopic imaging was obtained. Following completion of the procedure, the patient was extubated and transferred to the recovery room in good condition having tolerated the procedure well. JOB #: [id number] EXT JOB #:[id number]
--- NOTE | 2016-09-30 13:24 | HISTORY & PHYSICAL EXAMINATION ---
HPI - Admitted From Admitted from: Other (This is a 76-year-old female seen on the [facility] floor in consultation for an injury to her right hip sustained in a ground-level fall last night. DOS: 09/08/2016.) - History Obtained From Records Reviewed: Old records reviewed History obtained from: Patient, Family Exam limitations: Clinical condition - History of Present Illness Pain/Problem Location Description: right hip Severity at the worst: reports: Moderate Pain Quality: reports: Sharp Context-Pain started w/: reports: Movement, Palpation, Position Timing: reports: Abrupt onset Duration: reports: Hours: (12) Improved with: reports: Rest, Other (analgesic medication) Worsened by: reports: Movement, Palpation PMH/PSH - Past Medical History Cardiovascular: positive: Hypertension, Murmur, Other Respiratory: positive: None Neuro: positive: Headache/migraine, Other Endocrine/Autoimmune: positive: None GI: positive: None 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: 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: 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 : positive: Chronic bladder infection HEENT: positive: Chronic vision loss, Glaucoma, Other Psych: positive: None Musculoskeletal: positive: Osteoarthritis, Fatigue Derm: positive: Herpes zoster MRSA Hx?: No - Past Surgical History General: positive: Appendectomy Ortho: positive: Knee replacement, Other /SECURITY 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: positive: Oophrectomy Cardiovascular: positive: Pacemaker HEENT: positive: Tonsil/Adenoidectomy Social & Family Hx - Social History Does the pt smoke?: No Smoking Status: Former smoker Does the pt drink ETOH?: No Does the pt have substance abuse?: Yes - POLST Patient has POLST: No Meds/Allgy - Home Medications Home Medications: Ambulatory Orders Medication Instructions Recorded Confirmed Brimonidine Tartrate/Timolol 1 drops EACHEYE BID 11/08/13 09/08/16 [Combigan 0.2%-0.5% Eye Drops] Aspirin 81 mg ORAL DAILY 06/21/14 09/07/16 Cholecalciferol (Vitamin D3) 1,000 unit PO DAILY 03/02/16 09/08/16 [Vitamin D3] Gabapentin 600 mg PO BID 03/02/16 09/08/16 Latanoprost 1 drops EACHEYE DAILY 07/08/16 09/07/16 Loteprednol Etabonate [Lotemax] 1 drops LEFTEYE DAILY 07/08/16 09/07/16 Carbamazepine [Carbamazepine ER] 100 mg PO TID 07/11/16 09/08/16 Cranberry Fruit Extract [Cranberry] 200 mg PO DAILY 07/11/16 09/08/16 D-Mannose 300 mg PO DAILY 07/11/16 09/08/16 Gabapentin 300 mg PO QDLUNCH 07/11/16 09/08/16 Gabapentin 600 mg PO QDDINNER 07/11/16 09/08/16 Magnesium Oxide [Magnesium] 400 mg PO TID 07/11/16 09/07/16 Melatonin 3 mg PO QPM 07/11/16 09/07/16 Metoprolol Tartrate [Lopressor] 25 mg PO QPM 07/11/16 09/07/16 Propylene Glycol [Systane Balance] 1 drops EACHEYE DAILY 07/11/16 09/07/16 Red Yeast Rice 1,200 mg PO BID 07/11/16 09/07/16 Enoxaparin [Lovenox] 40 mg SUBQ DAILY syringe 09/10/16 HYDROmorphone [Dilaudid] 1 mg PO Q4H #10 tablet 09/10/16 - Allergies Allergies/Adverse Reactions: Allergies Allergy/AdvReac Type Severity Reaction Status Date / Time bee pollen Allergy Anaphylaxis Verified 07/11/16 06:59 guaifenesin [From Mucinex] Allergy Rash Verified 07/11/16 06:59 Penicillins Allergy Rash Verified 07/11/16 06:59 Sulfa (Sulfonamide Allergy Edema Verified 07/11/16 06:59 Antibiotics) Review of Systems - All Other Systems All Other Systems: reports: Reviewed and negative Exam - Vital Signs Reviewed Vital Signs: Yes - Physical Exam General Appearance: positive: Alert, Mild distress Eyes Bilateral: positive: Normal inspection ENT: positive: ENT inspection nml Neck: positive: Nml inspection Respiratory: positive: No respiratory distress, Breath sounds nml Cardiovascular: positive: Regular rate & rhythm Peripheral Pulses: positive: 2+ Abdomen: positive: Non-tender, Nml bowel sounds, No distention. negative: Guarding Back: positive: Nml inspection Skin: positive: Color nml, No rash, Warm, Dry Extremities: positive: Other (Right hip tender to any manipulation or motion. There is no significant shortening or external rotation of the right lower extremity. No other deformities are noted.). negative: Calf tenderness, Nadir' s sign/cords Neurologic/Psychiatric: positive: Oriented x3, Motor nml, Sensation nml, Mood/ affect nml Results - Lab Results Lab results reviewed: Yes Fish Bones: 09/10/16 05:10 09/10/16 05:10 - Diagnostic Imaging Results Diagnostic Imaging Results: positive: Final report reviewed, Read independently Impression/Plan - Problem List Problem List: Impression: Right hip stable 2 part intertrochanteric fracture after a ground- level fall. Plan: 1. To operating room for her right hip cephalomedullary nailing. 2. n.p.o. after midnight. 3. will probably require placement in a SNF after surgery.
== END 2016-09-10 13:10 | DRG 481 ==
LOC: EDUNIT# → ED 17:57 → MS 18:58
PROVIDERS: ADMIT Internal Medicine; ATTEND Specialist
PROC: 3E0T3CZ (ICD-10-PCS; principal; 2016-09-07)
PROC: 0QS606Z Reposition Right Upper Femur with Intramedullary Internal Fixation Device, Open Approach (ICD-10-PCS; 2016-09-08)
DX: S72.141A Displaced intertrochanteric fracture of right femur, initial encounter for closed fracture (principal); B02.29 Other postherpetic nervous system involvement; S72.21XA Displaced subtrochanteric fracture of right femur, initial encounter for closed fracture; W01.0XXA Fall on same level from slipping, tripping and stumbling without subsequent striking against object, initial encounter; Z96.659 Presence of unspecified artificial knee joint; B02.9 Zoster without complications; Z79.82 Long term (current) use of aspirin; I10 Essential (primary) hypertension; H40.9 Unspecified glaucoma; Z88.0 Allergy status to penicillin; Z88.2 Allergy status to sulfonamides; Z87.891 Personal history of nicotine dependence; E11.9 Type 2 diabetes mellitus without complications; Z96.653 Presence of artificial knee joint, bilateral; F43.21 Adjustment disorder with depressed mood; Z95.0 Presence of cardiac pacemaker; Y92.000 Kitchen of unspecified non-institutional (private) residence as the place of occurrence of the external cause; Z82.3 Family history of stroke; Z86.718 Personal history of other venous thrombosis and embolism
CPT/HCPCS: 36415; 51702; 80053; 83036; 83690; 83735; 84100; 85025; 85610; 96374; 96375; 99283; 99285

== ENCOUNTER 2016-12-19 10:32 | Outpatient (CLI) | payer MEDICARE, OTHER ==
[2016-12-24 14:40] LABS: TEST RESULT REPORT (())
== END 2016-12-19 10:33 | disposition home or self-care (01) ==
LOC: LAB 10:32
PROVIDERS: ATTEND Physician Assistant
DX: L29.8 Other pruritus (principal); Z71.89 Other specified counseling; Z79.899 Other long term (current) drug therapy
CPT/HCPCS: 36415; 81599; 86001

== ENCOUNTER 2016-12-27 17:11 | Emergency (ER) | payer MEDICARE, OTHER ==
--- NOTE | 2016-12-27 17:40 | ED Physician Documentation ---
PD HPI SKIN - Stated complaint Stated Complaint: RASH ALL OVER - Chief complaint Chief Complaint: Abd Pain - History obtained from History obtained from: Patient - History of Present Illness Timing - onset: How many days ago (2) Timing - duration: Days (2) Timing - details: Gradual onset, Still present (persistent) Location: [place] Quality / character: Itchy, Raised (hives appearance). No: Vesicular Improved by: Benadryl (will improve it for a few hours.) Associated symptoms: No: Fever, Facial swelling, Dyspnea, N/V/D Similar symptoms before: Has not had sx before Recently seen: Clinic (seen PMD and had blood test done which showed possible allergy to eggs, beef (naturopathic office).) Review of Systems Constitutional: denies: Fever Nose: denies: Rhinorrhea / runny nose, Congestion Throat: denies: Oral lesions / sores, Sore throat, Swollen tonsils Respiratory: denies: Dyspnea, Cough GI: denies: Abdominal Pain, Nausea, Vomiting, Diarrhea : denies: Dysuria, Frequency Skin: reports: Rash PD PAST MEDICAL HISTORY - Past Medical History Cardiovascular: Hypertension, Murmur, Other Respiratory: None Neuro: Headache/migraine, Other Endocrine/Autoimmune: None GI: None UPPER INSPECTOR: None : Chronic bladder infection HEENT: Chronic vision loss, Glaucoma, Other Psych: None Musculoskeletal: Osteoarthritis, Fatigue Derm: Herpes zoster - Past Surgical History Past Surgical History: Yes General: Appendectomy Ortho: Knee replacement, Other /UPPER INSPECTOR: Oophrectomy Cardiovascular: Pacemaker HEENT: Tonsil/Adenoidectomy - Present Medications Home Medications: Ambulatory Orders Medication Instructions Recorded Confirmed Brimonidine Tartrate/Timolol 1 drops EACHEYE BID 11/08/13 09/08/16 [Combigan 0.2%-0.5% Eye Drops] Aspirin 81 mg ORAL DAILY 06/21/14 09/07/16 Cholecalciferol (Vitamin D3) 1,000 unit PO DAILY 03/02/16 09/08/16 [Vitamin D3] Gabapentin 600 mg PO BID 03/02/16 09/08/16 Latanoprost 1 drops EACHEYE DAILY 07/08/16 09/07/16 Loteprednol Etabonate [Lotemax] 1 drops LEFTEYE DAILY 07/08/16 09/07/16 Carbamazepine [Carbamazepine ER] 100 mg PO TID 03/03/17 05/01/17 Cranberry Fruit Extract [Cranberry] 200 mg PO DAILY 07/11/16 09/08/16 D-Mannose 300 mg PO DAILY 07/11/16 09/08/16 Gabapentin 300 mg PO QDLUNCH 07/11/16 09/08/16 Gabapentin 600 mg PO QDDINNER 07/11/16 09/08/16 Magnesium Oxide [Magnesium] 400 mg PO TID 07/11/16 09/07/16 Melatonin 3 mg PO QPM 07/11/16 09/07/16 Metoprolol Tartrate [Lopressor] 25 mg PO QPM 07/11/16 09/07/16 Propylene Glycol [Systane Balance] 1 drops EACHEYE DAILY 07/11/16 09/07/16 Red Yeast Rice 1,200 mg PO BID 07/11/16 09/07/16 Enoxaparin [Lovenox] 40 mg SUBQ DAILY syringe 09/10/16 HYDROmorphone [Dilaudid] 1 mg PO Q4H #10 tablet 09/10/16 Cetirizine [ZyrTEC] 10 mg PO DAILY #20 tablet 12/27/16 Dexamethasone [Decadron] 4 mg PO DAILY #5 tablet 12/27/16 - Allergies Allergies/Adverse Reactions: Allergies Allergy/AdvReac Type Severity Reaction Status Date / Time bee pollen Allergy Anaphylaxis Verified 07/11/16 06:59 guaifenesin [From Mucinex] Allergy Rash Verified 07/11/16 06:59 Penicillins Allergy Rash Verified 07/11/16 06:59 Sulfa (Sulfonamide Allergy Edema Verified 07/11/16 06:59 Antibiotics) - Social History Does the pt smoke?: No Smoking Status: Former smoker Does the pt drink ETOH?: No Does the pt have substance abuse?: Yes - Immunizations Immunizations are current?: Yes Immunizations: TDAP >10years/unknown - POLST Patient has POLST: No PD ED PE NORMAL - Vitals Vital signs reviewed: Yes - General General: Alert and oriented X 3, No acute distress, Well developed/nourished - HEENT HEENT: Pharynx benign (nor oral swelling) - Neck Neck: Supple, no meningeal sign, No adenopathy - Cardiac Cardiac: RRR, No murmur - Respiratory Respiratory: Clear bilaterally - Derm Derm: Normal color, Warm and dry, Other (diffuse hives without vesicles.) - Neuro Neuro: Alert and oriented X 3, No motor deficit, Normal speech Results - Vitals Vitals: Oxygen O2 Source [Without Activity] Room air O2 Source Room air PD MEDICAL DECISION MAKING - ED course Complexity details: considered differential (hives without oral swelling/resp symptoms. ), d/w patient Departure - Departure Disposition: 01 Home, Self Care Clinical Impression: Hives Allergic reaction Qualifiers: Encounter type: initial encounter Qualified Code(s): T78.40XA - Allergy, unspecified, initial encounter Condition: Stable Record reviewed to determine appropriate education?: Yes Instructions: ED Urticaria Follow-Up: Tom Odom MD [Primary Care Provider] - Prescriptions: Dexamethasone [Decadron] 4 mg PO DAILY #5 tablet Cetirizine [ZyrTEC] 10 mg PO DAILY #20 tablet Comments: Benadryl 25-50 mg every 6 hours as needed for itching. Cetirizine daily for the next 3 weeks. Decadron steroid daily for 5 more days. Recheck if not improved over the next day or 2. Return sooner if worse, particularly if any trouble breathing or swelling of the lips or throat. Discharge Date/Time: 12/27/16 19:15
[2016-12-27] MEDS ORDERED: diphenhydrAMINE INJ 50 MG/ML VIAL IM STA (18:17)
[2016-12-27] MEDS ORDERED: CETIRIZINE 10 MG TABLET PO STA (18:17)
[2016-12-27] MEDS ORDERED: DEXAMETHASONE 10 MG/ML VIAL PO STA (18:17)
[2016-12-27] MEDS ORDERED: DEXAMETHASONE 10 MG/ML VIAL ONE (18:28)
[2016-12-27] MEDS ORDERED: CETIRIZINE 10 MG TABLET ONE (18:29)
[2016-12-27] MEDS ORDERED: diphenhydrAMINE INJ 50 MG/ML VIAL ONE (18:29)
[2016-12-27 18:41] VITALS: BP 105/55
== END 2016-12-27 19:15 | disposition home or self-care (01) ==
LOC: ED 17:11
DX: L50.0 Allergic urticaria (principal); I10 Essential (primary) hypertension; M19.90 Unspecified osteoarthritis, unspecified site; Z95.0 Presence of cardiac pacemaker; Z79.82 Long term (current) use of aspirin; Z87.891 Personal history of nicotine dependence
CPT/HCPCS: 96372; 99282; 99283; A9270

== ENCOUNTER 2017-02-04 11:04 | Outpatient (CLI) | payer MEDICARE, OTHER ==
[2017-02-04 11:22] LABS: BASOPHILS # (AUTO) 0.1 10^3/uL (0.0-0.1); BASOPHILS % (AUTO) 1.1 %; EOSINOPHILS # (AUTO) 0.3 10^3/uL (0.0-0.7); EOSINOPHILS % (AUTO) 4.5 %; HCT - HEMATOCRIT 39.9 % (37.0-47.0); HGB - HEMOGLOBIN 13.5 g/dL (12.0-16.0); LYMPHOCYTES # (AUTO) 1.3 10^3/uL (1.5-3.5); LYMPHOCYTES % (AUTO) 20.8 %; MEAN CORPUSCULAR HEMOGLOBIN 30.5 pg (27.0-31.0); MEAN CORPUSCULAR HGB CONC 33.8 g/dL (32.0-36.0); MEAN CORPUSCULAR VOLUME 90.1 fL (81.0-99.0); MONOCYTES % (AUTO) 15.9 %; NEUTROPHILS # (AUTO) 3.6 10^3/uL (1.5-6.6); NEUTROPHILS % (AUTO) 57.7 %; RED BLOOD COUNT 4.42 10^6/uL (4.20-5.40); RED CELL DISTRIBUTION WIDTH 14.7 % (12.0-15.0); UNCORRECTED WHITE BLOOD COUNT 6.2 x10^3/uL; WHITE BLOOD COUNT 6.2 x10^3/uL (4.8-10.8)
[2017-02-04 11:26] LABS: CALCIUM 8.9 mg/dL (8.5-10.3); CREATININE 0.6 mg/dL (0.4-1.0); POTASSIUM 4.1 mmol/L (3.5-5.0)
== END 2017-02-04 11:05 | disposition home or self-care (01) ==
LOC: LAB 11:04
PROVIDERS: ATTEND Nurse Anesthetist, Certified Registered
DX: T84.84XD Pain due to internal orthopedic prosthetic devices, implants and grafts, subsequent encounter (principal); Z79.899 Other long term (current) drug therapy
CPT/HCPCS: 36415; 80048; 85025

== ENCOUNTER 2017-02-05 07:28 | Day surgery (SDC) | payer MEDICARE, OTHER ==
[2017-02-05] MEDS ORDERED: ceFAZolin 2 GM/50 ML 2 GM/50 ML BAG IV ONE (07:38)
[2017-02-05] MEDS ORDERED: LACTATED RINGERS 1,000 ML IV ONE (07:56)
[2017-02-05] MEDS ORDERED: MIDAZOLAM 2 MG/2 ML VIAL IVP ONE (08:30)
[2017-02-05] MEDS ORDERED: PHENYLEPHRINE 10 MG/ML VIAL IV ONE (08:30)
[2017-02-05] MEDS ORDERED: ONDANSETRON 4 MG/2 ML VIAL IVP ONE (08:30)
[2017-02-05] MEDS ORDERED: DEXAMETHASONE 4 MG/ML VIAL IVP ONE (08:30)
[2017-02-05] MEDS ORDERED: PROPOFOL 200 MG/20 ML VIAL IVP ONE (08:30)
[2017-02-05] MEDS ORDERED: fentaNYL 100 MCG/2 ML VIAL IVP ONE (08:30)
[2017-02-05] MEDS ORDERED: KETOROLAC 30 MG/ML VIAL IVP ONE (08:30)
[2017-02-05] MEDS ORDERED: LIDOCAINE-MPF 2% 5 ML VIAL IM ONE (08:30)
[2017-02-05] MEDS ORDERED: BUPIVACAINE 0.25%-EPI 1:200000 PF 30 ML VIAL SUBQ ONE ×2 (11:24)
--- NOTE | 2017-02-05 11:47 | XRAY Report ---
INTRAOPERATIVE LEFT HIP: 02/05/2017 CLINICAL INDICATION: Screw replacement. FINDINGS: Intraoperative frontal and lateral views of the left hip were obtained, documenting replac ement of the dynamic compression screw. Fluoroscopy time of 22 seconds was provided to Dr. Ignacio; 2 spot images obtained. IMPRESSION: DOCUMENTATION OF INTRAOPERATIVE IMAGING AND FLUOROSCOPY TIME. JOB #: [id number] EXT JOB #:[id number]
--- NOTE | 2017-02-05 12:16 | OPERATIVE REPORT ---
DATE OF SURGERY: 02/05/2017 00:00:00 PREOPERATIVE DIAGNOSIS: Failure of orthopedic implant/device (lag screw prominent), left hip. PROCEDURE: Exchange of the lag screw, left hip. POSTOPERATIVE DIAGNOSIS: Failure of orthopedic implant/device (lag screw prominent), left hip. SURGEON: Alan Ignacio MD. ASSISTANTS: None. ANESTHESIA: General endotracheal. FINDINGS: Same. COMPLICATIONS: None. FLUIDS: 900 mL. BLOOD LOSS: 100 mL. SPECIMENS REMOVED AND CULTURES: None. IMPLANTS: Lag screw [employer] InterTan, 100 mm. DISPOSITION: PACU, then home. CONDITION: Stable. INDICATIONS: This is a 76-year-old female with multiple medical problems who sustained intertrochante betzaida fractures to both hips in the last year. Her most recent fracture was approximately 6 months ago. It was fixed by Dr. Samuel Man with a short [employer] InterTan nail. In the postoperative jeff od, she began to have problems with snapping and catching on the lateral aspect of her left thigh and radiographs revealed a prominent lag screw that appeared to be about 10-15 mm long. Despite physical therapy and extensive attempts to overcome the discomfort and snapping sensation, she has continued to be bothered by these symptoms. We had a long discussion about expectations for surgery, agreed to bring her back to the operating room, and exchange the lag screw for a shorter version. PROCEDURE IN DETAIL: After consent and identification, the patient was brought to the operating room and placed in a supine position on the operating litter. After induction of a general endotracheal an esthesia and appropriate monitoring, the patient was transferred by roller board to the [facility]. A well-padded perineal post was placed in the perineum. Right lower extremity was placed in a well padded Pranay stirrup. Left lower extremity was placed in a well-padded traction boot on the traction boom. The left arm was placed across the body and secured, padded with a towel and secured with tape . After appropriate positioning, the hip was prepped and draped free in the usual sterile fashion for hip surgery. An appropriate time-out was conducted. We then used fluoroscopy to localize our incisions. We used e original stab wound incision proximal to the greater trochanter on the lateral side. This incision was extended for approximately 5 cm through skin and subcutaneous tissue in the external fascia of e gluteus medius muscle. We identified the top of the lag screw and placed a guidewire in the tip of the cephalomedullary nail. We used a curet to clear out the top portion of the nail. We then inserted the screwdriver into the set screw and backed the set screw out 2 complete turns to disengage the la g screw. We then used fluoroscopy to localize our lateral approach, made a 2 cm incision on the later al side to site of the original stab wound. We advanced the guidewire after subcutaneous and muscular dissection to the lateral aspect of the lag screw. The guidewire was advanced up into the femoral he ad through the lag screw. We then inserted the T-handle insertion screwdriver over the guidewire into the lag screw and secured it with the threaded screw. We then used a T-handle to back out the lag sc rew. We measured the lag screw on the back table and noted to be 115 mm. We elected to go with a 100 mm screw. This was opened sterilely on the back table and assembled to the T-handle screwdriver. We t hen inserted this lag screw over the guidewire, such that the tip of the lag screw was flush with the lateral cortex of the femur. The insertion wire and T-handle were removed. Both wounds were thorough ly irrigated and closed with interrupted 2-0 Vicryl sutures, followed by Steri-Strips. We injected rashida th wounds with a total of 30 mL of 0.5% Marcaine with 1:100,000 epinephrine. Sterile Mepitel AG dress ings were then applied to both wounds. On completion of the procedure, the patient was extubated and transferred to the recovery room in good condition having tolerated the procedure well. JOB #: [id number] EXT JOB #:[id number]
[2017-02-05] MEDS ORDERED: fentaNYL 100 MCG/2 ML VIAL ONE (12:26)
[2017-02-05] MEDS ORDERED: ACETAMINOPHEN 325 MG TABLET PO ONE (13:04)
[2017-02-05 13:48] VITALS: BP 148/76
== END 2017-02-05 07:29 | disposition home or self-care (01) ==
LOC: SDS 07:28
PROVIDERS: ATTEND Orthopaedic Surgery
PROC: 0QP704Z Removal of Internal Fixation Device from Left Upper Femur, Open Approach (ICD-10-PCS; 2017-02-05)
PROC: 0QW704Z Revision of Internal Fixation Device in Left Upper Femur, Open Approach (ICD-10-PCS; principal; 2017-02-05 08:45)
DX: T84.84XA Pain due to internal orthopedic prosthetic devices, implants and grafts, initial encounter (principal); I27.2 Other secondary pulmonary hypertension; I10 Essential (primary) hypertension; K21.9 Gastro-esophageal reflux disease without esophagitis; E11.9 Type 2 diabetes mellitus without complications; Z88.0 Allergy status to penicillin; Z88.2 Allergy status to sulfonamides; Z91.030 Bee allergy status; Z95.0 Presence of cardiac pacemaker
CPT/HCPCS: 20680; 27599; 73502; A9270; J0690; J7120

== ENCOUNTER 2017-04-15 15:40 | Outpatient (CLI) | payer MEDICARE, OTHER | END 2017-04-15 15:41 | disposition home or self-care (01) | LOC: LAB.R 15:40 | PROVIDERS: ATTEND Family Medicine | DX: R30.0 Dysuria (principal) | CPT/HCPCS: 87077; 87086 ==

== ENCOUNTER 2017-06-24 22:34 | Emergency (ER) | payer MEDICARE, OTHER ==
--- NOTE | 2017-06-25 00:54 | ED Physician Documentation ---
History of Present Illness - Stated complaint Stated Complaint: RAPID HEART RATE - Chief complaint Chief Complaint: Cardiac - History obtained from History obtained from: Patient, Family - History of Present Illness Timing: Today - Additonal information Additional information: 77-year-old female with a pacemaker in place from a history of sick sinus syndrome has had an episode today of tachycardia. She has had these previously that have been short-lived and today she has had persistence of symptoms for about 2 hours. She did not get short of breath sweaty or vomit. She states that she has not been feeling ill recently and has not had any excessive physical activity. She did go to physical therapy today and she did go to see her doctor yesterday in [place]. Review of Systems Constitutional: denies: Fever Eyes: denies: Decreased vision Ears: denies: Ear pain Nose: denies: Congestion Throat: denies: Sore throat Cardiac: reports: Palpitations. 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 - Past Surgical History Past Surgical History: Yes General: Appendectomy, Colonoscopy, Other Ortho: Knee replacement, Other /TRANSIT MECHANIC:  Cardiovascular: Pacemaker HEENT: Cataracts, Tonsil/Adenoidectomy - Present Medications Home Medications: Ambulatory Orders Medication Instructions Recorded Confirmed Brimonidine Tartrate/Timolol 1 drops EACHEYE BID 11/08/13 02/05/17 [Combigan 0.2%-0.5% Eye Drops] Aspirin 81 mg ORAL DAILY 06/21/14 02/05/17 Cholecalciferol (Vitamin D3) 1,000 unit PO DAILY 03/02/16 02/05/17 [Vitamin D3] Latanoprost 1 drops EACHEYE DAILY 07/08/16 02/05/17 Loteprednol Etabonate [Lotemax] 1 drops LEFTEYE DAILY 07/08/16 02/05/17 Carbamazepine [Carbamazepine ER] 100 mg PO TID 07/11/16 02/05/17 Cranberry Fruit Extract [Cranberry] 200 mg PO DAILY 07/11/16 02/05/17 D-Mannose 300 mg PO DAILY 07/11/16 02/05/17 Gabapentin 300 mg PO QDLUNCH 07/11/16 02/05/17 Gabapentin 600 mg PO TID 07/11/16 02/05/17 Magnesium Oxide [Magnesium] 400 mg PO TID 07/11/16 02/05/17 Melatonin 3 mg PO QPM 07/11/16 02/05/17 Propylene Glycol [Systane Balance] 1 drops EACHEYE DAILY 07/11/16 02/05/17 Red Yeast Rice 1,200 mg PO BID 07/11/16 02/05/17 Calcium Citrate/Vitamin D3 500 mg PO BID 02/04/17 02/05/17 [Calcium Citrate-Vit D3 Tablet] Lutein/Zeaxanthin [Ocuvite Lutein 1 tab PO DAILY 02/04/17 02/05/17 25-5 mg Softgel] Metoprolol Succinate 25 mg PO QPM 02/04/17 02/05/17 Ubidecarenone [Co Q-10] 300 mg PO DAILY 02/04/17 02/05/17 Brimonidine Tartrate/Timolol 06/24/17 [Combigan 0.2%-0.5% Eye Drops] - Allergies Allergies/Adverse Reactions: Allergies Allergy/AdvReac Type Severity Reaction Status Date / Time bee pollen Allergy Anaphylaxis Verified 06/24/17 23:02 guaifenesin [From Mucinex] Allergy Rash Verified 06/24/17 23:02 lactase [From Dairy Aid] Allergy Hives Verified 06/24/17 23:02 Penicillins Allergy Rash Verified 06/24/17 23:02 Sulfa (Sulfonamide Allergy Edema Verified 06/24/17 23:02 Antibiotics) - Social History Does the pt smoke?: No Smoking Status: Never smoker Does the pt drink ETOH?: No Does the pt have substance abuse?: Yes - Immunizations Immunizations are current?: Yes Immunizations: TDAP >10years/unknown - POLST Patient has POLST: No PD ED PE NORMAL - Vitals Vital signs reviewed: Yes (hypertensive mild ) - General General: Alert and oriented X 3, No acute distress, Well developed/nourished - HEENT HEENT: Atraumatic, PERRL, EOMI - Neck Neck: Supple, no meningeal sign, No bony TTP - Cardiac Cardiac: RRR, No murmur - Respiratory Respiratory: No respiratory distress, Clear bilaterally - Abdomen Abdomen: Soft, Non tender - Back Back: No CVA TTP, No spinal TTP - Derm Derm: Normal color, Warm and dry, No rash - Extremities Extremities: No deformity, No edema - Neuro Neuro: Alert and oriented X 3, financial professional 2-12 intact, No motor deficit, No sensory deficit, Normal speech Eye Opening: Spontaneous Motor: Obeys Commands Verbal: Oriented GCS Score: 15 - Psych Psych: Normal mood, Normal affect Results - Vitals Vitals: Vital Signs - 24 hr 06/24/17 06/24/17 06/25/17 22:53 23:07 00:25 Temperature 36.7 C Heart Rate 58 L 58 L 58 L Respiratory 16 15 20 Rate Blood Pressure 149/77 H 138/66 H 135/77 H O2 Saturation 97 94 94 06/25/17 06/25/17 01:16 03:02 Temperature Heart Rate 55 L 67 Respiratory 13 15 Rate Blood Pressure 154/88 H 110/71 O2 Saturation 98 97 Oxygen O2 Source [] Room air O2 Source Room air - EKG (time done) 2246 Rate: Rate (enter#) (58) Rhythm: NSR QRS: LVH, Low voltage (in the lateral precordial leads only V4-6) Compare to prior EKG: Changed from prior EKG (SPT 01-30-17 the voltage in the lateral leads has decreased. ) - Labs Labs: Laboratory Tests 06/25/17 06/25/17 06/25/17 01:11 01:33 01:33 WBC 7.1 RBC 4.38 Hgb 13.1 Hct 40.0 MCV 91.2 MCH 29.9 MCHC 32.7 RDW 14.2 Plt Count 207 MPV 8.0 Neut # 4.0 Lymph # 1.4 L Bracken # 1.0 Eos # 0.6 Baso # 0.1 Absolute Nucleated RBC 0.00 Nucleated RBC % 0.0 Sodium 138 Potassium 3.9 Chloride 103 Carbon Dioxide 28 Anion Gap 7.0 BUN 19 Creatinine 0.6 Estimated GFR (MDRD) 96 Glucose 101 H Calcium 9.1 Total Bilirubin 0.6 AST 21 ALT 17 Alkaline Phosphatase 57 Troponin I Total Protein 6.6 L Albumin 3.8 Globulin 2.8 Albumin/Globulin Ratio 1.4 Lipase 26 Urine Color YELLOW Urine Clarity CLEAR Urine pH 8.0 H Ur Specific [place] 1.015 Urine Protein NEGATIVE Urine Glucose (UA) NEGATIVE Urine Ketones NEGATIVE Urine Occult Blood NEGATIVE Urine Nitrite NEGATIVE Urine Bilirubin NEGATIVE Urine Urobilinogen 0.2 (NORMAL) Ur Leukocyte Esterase SMALL H Urine RBC 0-5 Urine WBC 0-3 Ur Squamous Epith Cells FEW Squamous Urine Bacteria Moderate H Ur Microscopic Review INDICATED Urine Culture Comments INDICATED 06/25/17 01:33 WBC RBC Hgb Hct MCV MCH MCHC RDW Plt Count MPV Neut # Lymph # Bracken # Eos # Baso # Absolute Nucleated RBC Nucleated RBC % Sodium Potassium Chloride Carbon Dioxide Anion Gap BUN Creatinine Estimated GFR (MDRD) Glucose Calcium Total Bilirubin AST ALT Alkaline Phosphatase Troponin I < 0.04 Total Protein Albumin Globulin Albumin/Globulin Ratio Lipase Urine Color Urine Clarity Urine pH Ur Specific [place] Urine Protein Urine Glucose (UA) Urine Ketones Urine Occult Blood Urine Nitrite Urine Bilirubin Urine Urobilinogen Ur Leukocyte Esterase Urine RBC Urine WBC Ur Squamous Epith Cells Urine Bacteria Ur Microscopic Review Urine Culture Comments PD MEDICAL DECISION MAKING - ED course Complexity details: reviewed old records, reviewed results, re-evaluated patient , considered differential, d/w patient, d/w family ED course: 77-year-old female with a history of sick sinus syndrome who has pacer in place has had a 2 hour episode of tachycardia today that is now resolved. She has not had other symptoms during the day and she is not having symptoms now. Here on her workup we did find some leukocyte esterase and bacteria in the urine it did make grade for culture and we will treat empirically with a single dose of Rocephin IM and await results of the culture before committing to a course of antibiotic. Departure - Departure Disposition: 01 Home, Self Care Clinical Impression: Heart palpitations Condition: Stable Instructions: ED Palpitations Follow-Up: Tom Odom MD [Primary Care Provider] - Comments: Today on evaluation we did find that your urine had some leukocyte esterase and bacteria in it and there may be infection. You were given a single dose of antibiotic here and we will await results of culture before committing to a course of antibiotic. We should know in 1-2 days if there is pathologic infection. Discharge Date/Time: 06/25/17 03:03
[2017-06-25 01:42] LABS: BASOPHILS # (AUTO) 0.1 10^3/uL (0.0-0.1); BASOPHILS % (AUTO) 1.2 %; EOSINOPHILS # (AUTO) 0.6 10^3/uL (0.0-0.7); EOSINOPHILS % (AUTO) 8.9 %; HGB - HEMOGLOBIN 13.1 g/dL (12.0-16.0); LYMPHOCYTES # (AUTO) 1.4 10^3/uL (1.5-3.5); LYMPHOCYTES % (AUTO) 19.6 %; MEAN CORPUSCULAR HEMOGLOBIN 29.9 pg (27.0-31.0); MEAN CORPUSCULAR HGB CONC 32.7 g/dL (32.0-36.0); MEAN CORPUSCULAR VOLUME 91.2 fL (81.0-99.0); MONOCYTES % (AUTO) 13.8 %; NEUTROPHILS % (AUTO) 56.5 %; PLT - PLATELET COUNT 207 10^3/uL (130-450); RED BLOOD COUNT 4.38 10^6/uL (4.20-5.40); RED CELL DISTRIBUTION WIDTH 14.2 % (12.0-15.0); WHITE BLOOD COUNT 7.1 x10^3/uL (4.8-10.8)
[2017-06-25 01:47] LABS: BILIRUBIN,URINE NEGATIVE (NEGATIVE); CLARITY,URINE CLEAR (CLEAR); GLUCOSE, URINE (UA) NEGATIVE (NEGATIVE); KETONES,URINE (UA) NEGATIVE (NEGATIVE); LEUKOCYTE ESTERASE, URINE SMALL (NEGATIVE); NITRITE,URINE NEGATIVE (NEGATIVE); OCCULT BLOOD,URINE NEGATIVE (NEGATIVE); PROTEIN,URINE NEGATIVE (NEGATIVE); UROBILINOGEN,URINE 0.2 (NORMAL) E.U./dL (NORMAL)
[2017-06-25 01:52] LABS: BACTERIA,URINE Moderate /HPF (None Seen); RBC,URINE 0-5 /HPF (0-5); SQUAMOUS EPITHELIAL CELL,UR FEW Squamous (<= Few)
[2017-06-25 01:56] LABS: ALBUMIN 3.8 g/dL (3.2-5.5); ALBUMIN/GLOBULIN RATIO 1.4 (1.0-2.2); BILIRUBIN,TOTAL 0.6 mg/dL (0.2-1.0); CALCIUM 9.1 mg/dL (8.5-10.3); CREATININE 0.6 mg/dL (0.4-1.0); TOTAL PROTEIN 6.6 g/dL (6.7-8.2)
[2017-06-25] MEDS ORDERED: cefTRIAXone 1 GM VIAL IM STA (02:43)
[2017-06-25] MEDS ORDERED: LIDOCAINE 1% 2 ML VIAL SUBQ ONE (02:43)
[2017-06-25 03:03] VITALS: BP 110/71
== END 2017-06-25 03:03 | disposition home or self-care (01) ==
LOC: ED 22:34
DX: R00.2 Palpitations (principal); I10 Essential (primary) hypertension; R82.99 Other abnormal findings in urine; Z95.0 Presence of cardiac pacemaker; Z96.659 Presence of unspecified artificial knee joint
CPT/HCPCS: 80053; 81001; 81003; 83690; 84484; 85025; 87086; 93005; 96372; 99283; 99284

== ENCOUNTER 2017-12-14 22:56 | Emergency (ER) | payer MEDICARE, OTHER ==
[2017-12-14 23:07] VITALS: BP 154/56
--- NOTE | 2017-12-14 23:35 | ED Physician Documentation ---
PD HPI GI BLEED - Stated complaint Stated Complaint: DARK STOOLS - Chief complaint Chief Complaint: Abd Pain - History obtained from History obtained from: Patient - History of Present Illness Timing - onset: Today (tonight) Timing - details: Abrupt onset Pain level max: 0 Pain level now: 0 Associated symptoms: Black/tarry stool. No: Vomiting, Coffee ground emesis, BRBPR, Maroon stool, Diarrhea, Constipation, Abdominal pain, Dizzy Contributing factors: Anticoagulated (xarelto) Recently seen: Not recently seen - Additional information Additional information: had one episode of dark black stool tonight. she started taking Xarelto 3 days ago; she gets her pacemaker interrogated every 3 months, and the most recent interrogation revealed episode of atrial fibrillation occurred in September, and thus her photographer apprentice lithographic prescribed Xarelto. Review of Systems Constitutional: denies: Fever Cardiac: reports: Reviewed and negative Respiratory: denies: Dyspnea GI: reports: Bloody / black stool. 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 : Chronic bladder infection HEENT: Chronic vision loss, Glaucoma, Dental implants, Other Psych: None Musculoskeletal: Osteoarthritis, Fatigue Derm: Herpes zoster - Past Surgical History Past Surgical History: Yes General: Appendectomy, Colonoscopy, Other Ortho: Knee replacement, Other /RELIEF SALESPERSON:  Cardiovascular: Pacemaker HEENT: Cataracts, Tonsil/Adenoidectomy - Present Medications Home Medications: Ambulatory Orders Medication Instructions Recorded Confirmed Brimonidine Tartrate/Timolol 1 drops EACHEYE BID 11/08/13 02/05/17 [Combigan 0.2%-0.5% Eye Drops] Aspirin 81 mg ORAL DAILY 06/21/14 02/05/17 Cholecalciferol (Vitamin D3) 1,000 unit PO DAILY 03/02/16 02/05/17 [Vitamin D3] Latanoprost 1 drops EACHEYE DAILY 07/08/16 02/05/17 Loteprednol Etabonate [Lotemax] 1 drops LEFTEYE DAILY 07/08/16 02/05/17 Carbamazepine [Carbamazepine ER] 100 mg PO TID 07/11/16 02/05/17 Cranberry Fruit Extract [Cranberry] 200 mg PO DAILY 07/11/16 02/05/17 D-Mannose 300 mg PO DAILY 07/11/16 02/05/17 Gabapentin 300 mg PO QDLUNCH 07/11/16 02/05/17 Gabapentin 600 mg PO TID 07/11/16 02/05/17 Magnesium Oxide [Magnesium] 400 mg PO TID 07/11/16 02/05/17 Melatonin 3 mg PO QPM 07/11/16 02/05/17 Propylene Glycol [Systane Balance] 1 drops EACHEYE DAILY 07/11/16 02/05/17 Red Yeast Rice 1,200 mg PO BID 07/11/16 02/05/17 Calcium Citrate/Vitamin D3 500 mg PO BID 02/04/17 02/05/17 [Calcium Citrate-Vit D3 Tablet] Lutein/Zeaxanthin [Ocuvite Lutein 1 tab PO DAILY 02/04/17 02/05/17 25-5 mg Softgel] Metoprolol Succinate 25 mg PO QPM 02/04/17 02/05/17 Ubidecarenone [Co Q-10] 300 mg PO DAILY 02/04/17 02/05/17 Brimonidine Tartrate/Timolol 06/24/17 [Combigan 0.2%-0.5% Eye Drops] - Allergies Allergies/Adverse Reactions: Allergies Allergy/AdvReac Type Severity Reaction Status Date / Time bee pollen Allergy Anaphylaxis Verified 06/24/17 23:02 guaifenesin [From Mucinex] Allergy Rash Verified 06/24/17 23:02 lactase [From Dairy Aid] Allergy Hives Verified 06/24/17 23:02 Penicillins Allergy Rash Verified 06/24/17 23:02 Sulfa (Sulfonamide Allergy Edema Verified 06/24/17 23:02 Antibiotics) - Social History Does the pt smoke?: No Smoking Status: Never smoker Does the pt drink ETOH?: No Does the pt have substance abuse?: Yes - Immunizations Immunizations are current?: Yes Immunizations: TDAP >10years/unknown - POLST Patient has POLST: No PD ED PE NORMAL - Vitals Vital signs reviewed: Yes - General General: Alert and oriented X 3, No acute distress, Well developed/nourished - Cardiac Cardiac: RRR, No murmur - Respiratory Respiratory: No respiratory distress, Clear bilaterally - Abdomen Abdomen: Soft, Non tender - Derm Derm: Normal color, Warm and dry - Extremities Extremities: Other (right FA echymosis without tenderness, extensor surface) PD ED PE EXPANDED - Rectal Rectal: Heme Occult Neg - QC+, Acute Care Registered Nurse present (RN Sirisha Salazar) Results - Vitals Vitals: Vital Signs - 24 hr 12/14/17 12/15/17 23:05 00:40 Temperature 36.4 C L Heart Rate 54 L Respiratory 17 17 Rate Blood Pressure 154/56 H O2 Saturation 98 Oxygen O2 Source [Without Activity] Room air O2 Source Room air - Labs Labs: Laboratory Tests 12/14/17 12/14/17 23:48 23:48 WBC 6.0 RBC 4.01 L Hgb 13.1 Hct 37.7 MCV 94.0 MCH 32.7 H MCHC 34.7 RDW 13.3 Plt Count 191 MPV 8.1 Neut # (Auto) 3.2 Lymph # (Auto) 1.5 Gregg # (Auto) 1.0 Eos # (Auto) 0.3 Baso # (Auto) 0.1 Absolute Nucleated RBC 0.00 Nucleated RBC % 0.0 Sodium 136 Potassium 3.8 Chloride 104 Carbon Dioxide 28 Anion Gap 4.0 L BUN 17 Creatinine 0.6 Estimated GFR (MDRD) 96 Glucose 110 H Calcium 8.7 Total Bilirubin 0.6 AST 20 ALT 15 Alkaline Phosphatase 38 L Total Protein 6.2 L Albumin 3.6 Globulin 2.6 Albumin/Globulin Ratio 1.4 Lipase 29 PD MEDICAL DECISION MAKING - ED course Complexity details: reviewed results, re-evaluated patient, considered differential, d/w patient - Sepsis Event Vital Signs: Vital Signs - 24 hr 12/14/17 12/15/17 23:05 00:40 Temperature 36.4 C L Heart Rate 54 L Respiratory 17 17 Rate Blood Pressure 154/56 H O2 Saturation 98 Oxygen O2 Source [Without Activity] Room air O2 Source Room air Departure - Departure Disposition: 01 Home, Self Care Clinical Impression: Black stool Condition: Good Instructions: ED Symptoms No Dx Discharge Date/Time: 12/15/17 00:45
[2017-12-14 23:54] LABS: BASOPHILS # (AUTO) 0.1 10^3/uL (0.0-0.1); BASOPHILS % (AUTO) 0.8 %; EOSINOPHILS # (AUTO) 0.3 10^3/uL (0.0-0.7); EOSINOPHILS % (AUTO) 5.6 %; HGB - HEMOGLOBIN 13.1 g/dL (12.0-16.0); LYMPHOCYTES # (AUTO) 1.5 10^3/uL (1.5-3.5); LYMPHOCYTES % (AUTO) 24.4 %; MEAN CORPUSCULAR HEMOGLOBIN 32.7 pg (27.0-31.0); MEAN CORPUSCULAR HGB CONC 34.7 g/dL (32.0-36.0); MEAN PLATELET VOLUME 8.1 fL (7.9-10.8); MONOCYTES % (AUTO) 16.5 %; NEUTROPHILS # (AUTO) 3.2 10^3/uL (1.5-6.6); NEUTROPHILS % (AUTO) 52.7 %; PLT - PLATELET COUNT 191 10^3/uL (130-450); RED BLOOD COUNT 4.01 10^6/uL (4.20-5.40); RED CELL DISTRIBUTION WIDTH 13.3 % (12.0-15.0)
[2017-12-15 00:08] LABS: ALBUMIN 3.6 g/dL (3.2-5.5); ALBUMIN/GLOBULIN RATIO 1.4 (1.0-2.2); BILIRUBIN,TOTAL 0.6 mg/dL (0.2-1.0); CALCIUM 8.7 mg/dL (8.5-10.3); CREATININE 0.6 mg/dL (0.4-1.0); TOTAL PROTEIN 6.2 g/dL (6.7-8.2)
== END 2017-12-15 00:45 | disposition home or self-care (01) ==
LOC: ED 22:56
DX: R19.5 Other fecal abnormalities (principal); I10 Essential (primary) hypertension; Z95.0 Presence of cardiac pacemaker; Z79.01 Long term (current) use of anticoagulants; Z79.82 Long term (current) use of aspirin
CPT/HCPCS: 36415; 80053; 83690; 85025; 85610; 85730; 99283

== ENCOUNTER 2018-02-05 03:03 | Emergency (ER) | payer MEDICARE, OTHER ==
--- NOTE | 2018-02-05 03:40 | ED Physician Documentation ---
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 No: Weakness, Numbness, Tingling, Discolored Contributing factors: Anticoagulated (eliquis) Similar symptoms before: Has not had sx before Recently seen: Not recently seen - Additonal information Additional information: was in bathroom, standing, lost balance and fell, struck her left hand against door latch, sustaining left 5th digit lac. denies head injury, denies any other injury except the left fifth digit Review of Systems Skin: reports: Laceration (s) Musculoskeletal: reports: Extremity pain, Extremity swelling. 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 : Chronic bladder infection HEENT: Chronic vision loss, Glaucoma, Dental implants, Other Psych: None Musculoskeletal: Osteoarthritis, Fatigue Derm: Herpes zoster - Past Surgical History Past Surgical History: Yes General: Appendectomy, Colonoscopy, Other Ortho: Knee replacement, Other /ORE DIGGER:  Cardiovascular: Pacemaker HEENT: Cataracts, Tonsil/Adenoidectomy - Present Medications Home Medications: Ambulatory Orders Medication Instructions Recorded Confirmed Brimonidine Tartrate/Timolol 1 drops EACHEYE BID 11/08/13 02/05/17 [Combigan 0.2%-0.5% Eye Drops] Aspirin 81 mg ORAL DAILY 06/21/14 02/05/17 Cholecalciferol (Vitamin D3) 1,000 unit PO DAILY 03/02/16 02/05/17 [Vitamin D3] Latanoprost 1 drops EACHEYE DAILY 07/08/16 02/05/17 Loteprednol Etabonate [Lotemax] 1 drops LEFTEYE DAILY 07/08/16 02/05/17 Cranberry Fruit Extract [Cranberry] 200 mg PO DAILY 07/11/16 02/05/17 D-Mannose 300 mg PO DAILY 07/11/16 02/05/17 Gabapentin 300 mg PO QDLUNCH 07/11/16 02/05/17 Gabapentin 600 mg PO TID 07/11/16 02/05/17 Magnesium Oxide [Magnesium] 400 mg PO TID 07/11/16 02/05/17 Melatonin 3 mg PO QPM 07/11/16 02/05/17 Propylene Glycol [Systane Balance] 1 drops EACHEYE DAILY 07/11/16 02/05/17 Red Yeast Rice 1,200 mg PO BID 07/11/16 02/05/17 carBAMazepine [Carbamazepine ER] 100 mg PO TID 07/11/16 02/05/17 Calcium Citrate/Vitamin D3 500 mg PO BID 02/04/17 02/05/17 [Calcium Citrate-Vit D3 Tablet] Lutein/Zeaxanthin [Ocuvite Lutein 1 tab PO DAILY 02/04/17 02/05/17 25-5 mg Softgel] Metoprolol Succinate 25 mg PO QPM 02/04/17 02/05/17 Ubidecarenone [Co Q-10] 300 mg PO DAILY 02/04/17 02/05/17 Brimonidine Tartrate/Timolol 06/24/17 [Combigan 0.2%-0.5% Eye Drops] Cephalexin [Keflex] 500 mg PO Q6HR #20 capsule 02/05/18 - Allergies Allergies/Adverse Reactions: Allergies Allergy/AdvReac Type Severity Reaction Status Date / Time bee pollen Allergy Anaphylaxis Verified 02/05/18 03:11 guaifenesin [From Mucinex] Allergy Rash Verified 02/05/18 03:11 lactase [From Dairy Aid] Allergy Hives Verified 02/05/18 03:11 Penicillins Allergy Rash Verified 02/05/18 03:11 Sulfa (Sulfonamide Allergy Edema Verified 02/05/18 03:11 Antibiotics) - Social History Does the pt smoke?: No Smoking Status: Never smoker Does the pt drink ETOH?: No Does the pt have substance abuse?: Yes - Immunizations Immunizations are current?: No Immunizations: TDAP >10years/unknown - POLST Patient has POLST: No PD ED PE NORMAL - Vitals Vital signs reviewed: Yes - General General: Alert and oriented X 3, No acute distress, Well developed/nourished - HEENT HEENT: PERRL, EOMI - Neuro Neuro: No motor deficit, No sensory deficit PD ED PE EXPANDED - Extremities SANA UE/Hands Visual: 1 - laceration (2 cm lac) 2 - laceration (2 and 3 are a single, continuous laceration, 2 cm length) 3 - laceration (continuation of 2 laceration) 4 - deformity (nail is absent but no damage to nail bed) Results - Vitals Vitals: Vital Signs - 24 hr 02/05/18 06:29 Temperature 36.5 C Heart Rate 55 L Respiratory 16 Rate Blood Pressure 149/91 H O2 Saturation 98 Oxygen O2 Source [Without Activity] Room air O2 Source Room air - Rads (name of study) xrays left fingers Radiology: Prelim report reviewed, See rad report Procedures - Laceration (location) Finger left Length in cm: 4 (total length of two lacerations on left fifth finger) Wound type: Curved, Into subcut fat, Clean Neurovascular status: Sensory intact, Motor intact, Vascular intact Tendon involvement: Tendon intact Anesthesia: Lidocaine 1%, Marcaine 0.5%, OTH (Digital block at base of left fifth digit using 1:1 mixture of the noted anesthetics, total of 8 cc injected with excellent and complete anesthesia) Wound Preparation: Chlorhexadine, Irrigated copiously NS, Wound explored. No: FB identified Skin layer closure: Nylon, Interrupted, Running, Size #-0 - enter number (5-0), Other (combination of interrupted, running, and horizontal mattress) Other: Patient tolerated well, No complications, Neurovascular intact, Dressing applied, Tetanus UTD, Other (Xeroform gauze tucked under proximal nail fold to maintain patency.) Complexity: Simple PD MEDICAL DECISION MAKING - ED course Complexity details: considered differential, d/w patient, d/w family - Sepsis Event Vital Signs: Vital Signs - 24 hr 02/05/18 06:29 Temperature 36.5 C Heart Rate 55 L Respiratory 16 Rate Blood Pressure 149/91 H O2 Saturation 98 Oxygen O2 Source [Without Activity] Room air O2 Source Room air Departure - Departure Disposition: 01 Home, Self Care Clinical Impression: Finger laceration Condition: Good Instructions: ED Laceration Hand Follow-Up: [facility] [Provider Group] [facility] [Provider Group] Prescriptions: Cephalexin [Keflex] 500 mg PO Q6HR #20 capsule Comments: You should follow up with your doctor in 3-4 days for a recheck of the wound. You also need to be reevaluated in 10 days for removal of the stitches Discharge Date/Time: 02/05/18 06:32
--- NOTE | 2018-02-05 03:52 | XRAY Report ---
Reason: pain and bleeding to 5th finger after fall Procedure Date: 02/05/2018 Accession Number: [id number] / [id number] Procedure: XR - Finger(s) LT CPT Code: FULL RESULT: EXAM: LEFT FIFTH DIGIT RADIOGRAPHY EXAM DATE: 02/05/2018 03:43 AM. CLINICAL HISTORY: Pain and bleeding to 5th finger after fall. COMPARISON: None. TECHNIQUE: 3 views. FINDINGS: Bones: There is a minimally displaced distal tuft fracture of the left fifth finger. Joints: Normal. No subluxations. Soft Tissues: Soft tissue laceration. IMPRESSION: Minimally displaced distal tuft fracture of the left fifth finger. RADIA
[2018-02-05] MEDS ORDERED: LIDOCAINE 1% 2 ML VIAL SUBQ STA ×2 (03:57→04:01)
[2018-02-05] MEDS ORDERED: BUFFERED LIDOCAINE 10 ML SYRINGE SUBQ STA (03:58)
[2018-02-05] MEDS ORDERED: BUPIVACAINE 0.5% PF 10 ML VIAL SUBQ STA (03:58)
[2018-02-05] MEDS ORDERED: cephALEXin 250 MG CAPSULE PO STA (06:20)
[2018-02-05 06:29] VITALS: BP 149/91
== END 2018-02-05 06:32 | disposition home or self-care (01) ==
LOC: ED 03:03
DX: S61.217A Laceration without foreign body of left little finger without damage to nail, initial encounter (principal); I10 Essential (primary) hypertension; I48.91 Unspecified atrial fibrillation; Z95.0 Presence of cardiac pacemaker; Z79.01 Long term (current) use of anticoagulants; W01.118A Fall on same level from slipping, tripping and stumbling with subsequent striking against other sharp object, initial encounter; Y92.002 Bathroom of unspecified non-institutional (private) residence as the place of occurrence of the external cause
CPT/HCPCS: 12002; 73140; 99283; A9270

== ENCOUNTER 2018-12-22 08:00 | Outpatient (CLI) | payer MEDICARE, OTHER ==
[2018-12-22 17:13] LABS: BILIRUBIN,URINE NEGATIVE (NEGATIVE); GLUCOSE, URINE (UA) NEGATIVE (NEGATIVE); KETONES,URINE (UA) NEGATIVE (NEGATIVE); LEUKOCYTE ESTERASE, URINE LARGE (NEGATIVE); NITRITE,URINE POSITIVE (NEGATIVE); OCCULT BLOOD,URINE TRACE-INTA (NEGATIVE); PH,URINE 5.5 PH (5.0-7.5); PROTEIN,URINE TRACE mg/dL (NEGATIVE); UROBILINOGEN,URINE 0.2 (NORMAL) E.U./dL (NORMAL)
[2018-12-22 17:40] LABS: BACTERIA,URINE Many /HPF (None Seen); CLARITY,URINE CLOUDY (CLEAR); RBC,URINE TNTC /HPF (0-5); SQUAMOUS EPITHELIAL CELL,UR RARE Squamous (<= Few)
== END 2018-12-22 23:59 ==
LOC: LAB.R 08:00
PROVIDERS: ATTEND Internal Medicine
DX: R35.0 Frequency of micturition (principal)
CPT/HCPCS: 81001; 81003; 87077; 87086; 87181

== ENCOUNTER 2019-02-20 17:07 | Emergency (ER) | payer MEDICARE, OTHER ==
[2019-02-20 17:27] VITALS: BP 146/91
[2019-02-20] MEDS ORDERED: DOXEPIN 10 MG CAPSULE PO STA (17:37)
[2019-02-20] MEDS ORDERED: predniSONE 20 MG TABLET PO STA (17:38)
--- NOTE | 2019-02-20 17:40 | ED Physician Documentation ---
PD HPI WOUND RECHECK - Stated complaint Stated Complaint: POST OP HIVES - Chief complaint Chief Complaint: Wound - Histroy obtained from History obtained from: Patient - History of Present Illness Location: Other (She was released from the hospital yesterday after laparoscopic valve surgery. Since then she said very itchy hives throughout especially where she had laparoscopic ports placed. No trouble breathing. 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 : Chronic bladder infection HEENT: Chronic vision loss, Glaucoma, Dental implants, Other Psych: None Musculoskeletal: Osteoarthritis, Fatigue Derm: Herpes zoster - Past Surgical History Past Surgical History: Yes General: Appendectomy, Colonoscopy, Other Ortho: Knee replacement, Other /BILLING REP:  Cardiovascular: Pacemaker HEENT: Cataracts, Tonsil/Adenoidectomy - Present Medications Home Medications: Ambulatory Orders Medication Instructions Recorded Confirmed Brimonidine Tartrate/Timolol 1 drops EACHEYE BID 11/08/13 02/05/17 [Combigan 0.2%-0.5% Eye Drops] Aspirin 81 mg ORAL DAILY 06/21/14 02/05/17 Cholecalciferol (Vitamin D3) 1,000 unit PO DAILY 03/02/16 02/05/17 [Vitamin D3] Latanoprost 1 drops EACHEYE DAILY 07/08/16 02/05/17 Loteprednol Etabonate [Lotemax] 1 drops LEFTEYE DAILY 07/08/16 02/05/17 Cranberry Fruit Extract [Cranberry] 200 mg PO DAILY 07/11/16 02/05/17 D-Mannose 300 mg PO DAILY 07/11/16 02/05/17 Gabapentin 300 mg PO QDLUNCH 07/11/16 02/05/17 Gabapentin 600 mg PO TID 07/11/16 02/05/17 Magnesium Oxide [Magnesium] 400 mg PO TID 07/11/16 02/05/17 Melatonin 3 mg PO QPM 07/11/16 02/05/17 Propylene Glycol [Systane Balance] 1 drops EACHEYE DAILY 07/11/16 02/05/17 Red Yeast Rice 1,200 mg PO BID 07/11/16 02/05/17 carBAMazepine [Carbamazepine ER] 100 mg PO TID 07/11/16 02/05/17 Calcium Citrate/Vitamin D3 500 mg PO BID 02/04/17 02/05/17 [Calcium Citrate-Vit D3 Tablet] Lutein/Zeaxanthin [Ocuvite Lutein 1 tab PO DAILY 02/04/17 02/05/17 25-5 mg Softgel] Metoprolol Succinate 25 mg PO QPM 02/04/17 02/05/17 Ubidecarenone [Co Q-10] 300 mg PO DAILY 02/04/17 02/05/17 Brimonidine Tartrate/Timolol 06/24/17 [Combigan 0.2%-0.5% Eye Drops] Cephalexin [Keflex] 500 mg PO Q6HR #20 capsule 02/05/18 Doxepin [SINEquan] 10 mg PO TID PRN #30 capsule 02/20/19 predniSONE [Deltasone] 60 mg PO DAILY 5 Days #15 tablet 02/20/19 - Allergies Allergies/Adverse Reactions: Allergies Allergy/AdvReac Type Severity Reaction Status Date / Time bee pollen Allergy Anaphylaxis Verified 02/20/19 17:27 Beef Containing Products Allergy Unknown Verified 02/20/19 17:27 guaifenesin [From Mucinex] Allergy Rash Verified 02/20/19 17:27 lactase [From Dairy Aid] Allergy Hives Verified 02/20/19 17:27 Penicillins Allergy Rash Verified 02/20/19 17:27 Sulfa (Sulfonamide Allergy Edema Verified 02/20/19 17:27 Antibiotics) - Social History Does the pt smoke?: No Smoking Status: Never smoker Does the pt drink ETOH?: No Does the pt have substance abuse?: Yes - Immunizations Immunizations are current?: No Immunizations: TDAP >10years/unknown - POLST Patient has POLST: No PD ED PE NORMAL - Vitals Vital signs reviewed: Yes - General General: Alert and oriented X 3, No acute distress - HEENT HEENT: Pharynx benign - Respiratory Respiratory: No respiratory distress, Clear bilaterally - Derm Derm: Other (She has hives kind of covering the body but for the most part sparing the face, there is especially notable on the medial surfaces of the upper arms and abdominal wall, but the legs as well. They spare the palms and soles.) - Neuro Neuro: Alert and oriented X 3, Normal speech Results - Vitals Vitals: Vital Signs - 24 hr 02/20/19 17:23 Temperature 36.4 C L Heart Rate 82 Respiratory 20 Rate Blood Pressure 146/91 H O2 Saturation 99 Oxygen O2 Source [Without Activity] Room air O2 Source Room air - Labs Labs: Laboratory Tests 02/20/19 17:40 Whole Blood INR 2.0 H Departure - Departure Disposition: 01 Home, Self Care Clinical Impression: Hives, Adequate anticoagulation on anticoagulant therapy Condition: Good Record reviewed to determine appropriate education?: Yes Instructions: ED Urticaria Follow-Up: Odell Padilla MD [Primary Care Provider] - Prescriptions: Doxepin [SINEquan] 10 mg PO TID PRN #30 capsule PRN Reason: Itching predniSONE [Deltasone] 60 mg PO DAILY 5 Days #15 tablet Comments: Your INR today is 2.0 which is good, he will need to have it checked again before the end of the week. Return for new worsening symptoms.
== END 2019-02-20 17:55 | disposition home or self-care (01) ==
LOC: ED 17:07
DX: L50.9 Urticaria, unspecified (principal); Z98.890 Other specified postprocedural states; Z79.01 Long term (current) use of anticoagulants; Z79.82 Long term (current) use of aspirin; I48.91 Unspecified atrial fibrillation; I10 Essential (primary) hypertension
CPT/HCPCS: 85610; 99283; A9270; J7512

== ENCOUNTER 2019-02-23 10:07 | Outpatient (CLI) | payer MEDICARE, OTHER ==
[2019-02-23 10:32] LABS: PT - PROTHROMBIN TIME 68.2 secs (9.9-12.6)
[2019-02-23 10:49] LABS: INR 6.7 (0.8-1.2)
== END 2019-02-23 10:08 | disposition home or self-care (01) ==
LOC: LAB 10:07
PROVIDERS: ATTEND Internal Medicine
DX: I48.20 Chronic atrial fibrillation, unspecified (principal)
CPT/HCPCS: 36415; 85610

== ENCOUNTER 2019-02-25 09:55 | Outpatient (CLI) | payer MEDICARE, OTHER | END 2019-02-25 09:56 | disposition home or self-care (01) | LOC: LAB 09:55 | PROVIDERS: ATTEND Internal Medicine | DX: I48.20 Chronic atrial fibrillation, unspecified (principal) | CPT/HCPCS: 85610 ==

== ENCOUNTER 2019-03-01 10:47 | Outpatient (CLI) | payer MEDICARE, OTHER | END 2019-03-01 10:48 | disposition home or self-care (01) | LOC: LAB 10:47 | PROVIDERS: ATTEND Internal Medicine | DX: I48.20 Chronic atrial fibrillation, unspecified (principal) | CPT/HCPCS: 85610 ==

== ENCOUNTER 2019-03-08 10:24 | Outpatient (CLI) | payer MEDICARE, OTHER | END 2019-03-08 10:25 | disposition home or self-care (01) | LOC: LAB 10:24 | PROVIDERS: ATTEND Internal Medicine | DX: I48.20 Chronic atrial fibrillation, unspecified (principal) | CPT/HCPCS: 85610 ==

== ENCOUNTER 2019-03-14 09:51 | Outpatient (CLI) | payer MEDICARE, OTHER | END 2019-03-14 09:52 | disposition home or self-care (01) | LOC: LAB 09:51 | PROVIDERS: ATTEND Internal Medicine | DX: I48.20 Chronic atrial fibrillation, unspecified (principal) | CPT/HCPCS: 85610 ==

== ENCOUNTER 2019-05-06 13:44 | Emergency (ER) | payer MEDICARE, OTHER ==
--- NOTE | 2019-05-06 14:35 | XRAY Report ---
Reason: fall Procedure Date: 05/06/2019 Accession Number: [id number] / [id number] Procedure: XR - Knee 4 View RT CPT Code: Final Report FULL RESULT: EXAM: RIGHT KNEE RADIOGRAPHY EXAM DATE: 05/06/2019 02:21 PM. CLINICAL HISTORY: Fall. Right knee pain. COMPARISON: None. TECHNIQUE: 4 views. FINDINGS: Bones: No acute fracture or bony lesion. Partially visualized are changes from internal fixation of the right femur. Joints: Right knee arthroplasty is present in anatomic alignment. No dislocation . No knee effusion. Soft Tissues: Marked soft tissue swelling anterior to the right knee. IMPRESSION: 1. No acute osseous abnormalities. 2. Marked soft tissue swelling anterior to the right knee. 3. Status post right knee arthroplasty anatomic in alignment. RADIA
[2019-05-06] MEDS ORDERED: oxyCODONE 5 MG TABLET PO STA (15:39)
--- NOTE | 2019-05-06 15:50 | ED Physician Documentation ---
History of Present Illness - Stated complaint Stated Complaint: INJURY TO BOTH KNEES - Chief complaint Chief Complaint: Ext Problem - History obtained from History obtained from: Patient, Family - History of Present Illness Timing: Today Pain level max: 5 Pain level now: 4 - Additonal information Additional information: 78-year-[place] her bilateral knees. Has had bilateral knee replacements in the past. States pain to the right knee with swelling and bruising. She does take Eliquis at home. Did not strike her head. No head, neck, back pain. 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 : Chronic bladder infection HEENT: Chronic vision loss, Glaucoma, Dental implants, Other Psych: None Musculoskeletal: Osteoarthritis, Fatigue Derm: Herpes zoster - Past Surgical History Past Surgical History: Yes General: Appendectomy, Colonoscopy, Other Ortho: Knee replacement, 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:  Cardiovascular: Pacemaker HEENT: Cataracts, Tonsil/Adenoidectomy - Present Medications Home Medications: Ambulatory Orders Medication Instructions Recorded Confirmed Brimonidine Tartrate/Timolol 1 drops EACHEYE BID 11/08/13 02/05/17 [Combigan 0.2%-0.5% Eye Drops] Aspirin 81 mg ORAL DAILY 06/21/14 02/05/17 Cholecalciferol (Vitamin D3) 1,000 unit PO DAILY 03/02/16 02/05/17 [Vitamin D3] Latanoprost 1 drops EACHEYE DAILY 07/08/16 02/05/17 Loteprednol Etabonate [Lotemax] 1 drops LEFTEYE DAILY 07/08/16 02/05/17 Cranberry Fruit Extract [Cranberry] 200 mg PO DAILY 07/11/16 02/05/17 D-Mannose 300 mg PO DAILY 07/11/16 02/05/17 Gabapentin 300 mg PO QDLUNCH 07/11/16 02/05/17 Gabapentin 600 mg PO TID 07/11/16 02/05/17 Magnesium Oxide [Magnesium] 400 mg PO TID 07/11/16 02/05/17 Melatonin 3 mg PO QPM 07/11/16 02/05/17 Propylene Glycol [Systane Balance] 1 drops EACHEYE DAILY 07/11/16 02/05/17 Red Yeast Rice 1,200 mg PO BID 07/11/16 02/05/17 carBAMazepine [Carbamazepine ER] 100 mg PO TID 07/11/16 02/05/17 Calcium Citrate/Vitamin D3 500 mg PO BID 02/04/17 02/05/17 [Calcium Citrate-Vit D3 Tablet] Lutein/Zeaxanthin [Ocuvite Lutein 1 tab PO DAILY 02/04/17 02/05/17 25-5 mg Softgel] Metoprolol Succinate 25 mg PO QPM 02/04/17 02/05/17 Ubidecarenone [Co Q-10] 300 mg PO DAILY 02/04/17 02/05/17 Brimonidine Tartrate/Timolol 06/24/17 [Combigan 0.2%-0.5% Eye Drops] Cephalexin [Keflex] 500 mg PO Q6HR #20 capsule 02/05/18 Doxepin [SINEquan] 10 mg PO TID PRN #30 capsule 02/20/19 predniSONE [Deltasone] 60 mg PO DAILY 5 Days #15 tablet 02/20/19 Oxycodone HCl/Acetaminophen 1 - 2 each PO Q6H PRN #14 tablet 05/06/19 [Percocet 5-325 mg Tablet] - Allergies Allergies/Adverse Reactions: Allergies Allergy/AdvReac Type Severity Reaction Status Date / Time bee pollen Allergy Anaphylaxis Verified 02/20/19 17:27 Beef Containing Products Allergy Unknown Verified 02/20/19 17:27 guaifenesin [From Mucinex] Allergy Rash Verified 02/20/19 17:27 lactase [From Dairy Aid] Allergy Hives Verified 02/20/19 17:27 Penicillins Allergy Rash Verified 02/20/19 17:27 Sulfa (Sulfonamide Allergy Edema Verified 02/20/19 17:27 Antibiotics) - Social History Does the pt smoke?: No Smoking Status: Never smoker Does the pt drink ETOH?: No Does the pt have substance abuse?: Yes - Immunizations Immunizations are current?: No Immunizations: TDAP >10years/unknown - POLST Patient has POLST: No PD ED PE NORMAL - Vitals Vital signs reviewed: Yes - General General: Alert and oriented X 3, No acute distress, Well developed/nourished - HEENT HEENT: Moist mucous membranes - Neck Neck: Supple, no meningeal sign - Cardiac Cardiac: Other (Irregular) - Respiratory Respiratory: No respiratory distress, Clear bilaterally - Abdomen Abdomen: Soft, Non tender - Derm Derm: Warm and dry - Extremities Extremities: Other (Tender to palpation about the right knee. Prepatellar bruising and swelling. Left knee exam is normal.) - Neuro Neuro: Alert and oriented X 3 - Psych Psych: Normal mood, Normal affect Results - Vitals Vitals: Vital Signs - 24 hr 05/06/19 13:47 Temperature 36.7 C Heart Rate 90 Respiratory 16 Rate Blood Pressure 130/86 H O2 Saturation 99 Oxygen O2 Source [] Room air O2 Source Room air - Rads (name of study) Bilateral knee x-ray Radiology: Prelim report reviewed, EMP read contemporaneously, See rad report (. No acute osseous abnormalities. 2. Marked soft tissue swelling anterior to the right knee. 3. Status post right knee arthroplasty anatomic in alignment. ) PD MEDICAL DECISION MAKING - ED course Complexity details: reviewed results, re-evaluated patient, considered differential, d/w patient, d/w family ED course: Patient with a right knee hematoma. Blane bandage applied. Will utilize ice at home as well. She is on Eliquis. No acute findings on x-ray. She will follow- up closely with her doctor for repeat evaluation. Patient counseled regarding signs and symptoms for which I believe and urgent re-evaluation would be necessary. Patient with good understanding of and agreement to plan and is comfortable going home at this time This document was made in part using voice recognition software. While efforts are made to proofread this document, sound alike and grammatical errors may occur. Departure - Departure Disposition: 01 Home, Self Care Clinical Impression: Hematoma Condition: Good Instructions: ED Hematoma Follow-Up: Odell Padilla MD [Primary Care Provider] - Within 3 Days Prescriptions: Oxycodone HCl/Acetaminophen [Percocet 5-325 mg Tablet] 1 - 2 each PO Q6H PRN #14 tablet PRN Reason: pain Comments: You need to use your walker at home. Keep compression on the need to decrease the size of the hematoma. Icing will also help. You will need to compress the knee for several days as you are on Eliquis. Return if you worsen. A neoprene knee brace may help as well. Follow-up with your doctor in 3 days for repeat evaluation. Do not drink alcohol or drive while on narcotic pain medicine. Note that many narcotic pain relievers also contain tylenol/acetaminophen. Please ensure that your total dose of acetaminophen from all sources does not exceed 3 grams (3000mg) per day. You may constipated on this medication, take a stool softener such as "Colace" twice a day while you are on it. Also recommend a [id number] laxative such as senna or MiraLAX any day that you do not have a bowel movement. If you received narcotic pain medication in the emergency department, do not drive or operate machinery for the next 24 hours.
[2019-05-06 16:53] VITALS: BP 123/72
== END 2019-05-06 16:54 | disposition home or self-care (01) ==
LOC: ED 13:44
DX: S80.01XA Contusion of right knee, initial encounter (principal); W01.0XXA Fall on same level from slipping, tripping and stumbling without subsequent striking against object, initial encounter; Y93.01 Activity, walking, marching and hiking; Y92.89 Other specified places as the place of occurrence of the external cause; Z96.653 Presence of artificial knee joint, bilateral; I48.91 Unspecified atrial fibrillation; Z79.01 Long term (current) use of anticoagulants; Z79.82 Long term (current) use of aspirin; I10 Essential (primary) hypertension; Z95.0 Presence of cardiac pacemaker
CPT/HCPCS: 73564; 99283; 99284; A9270

== ENCOUNTER 2019-07-05 10:25 | Outpatient (CLI) | payer MEDICARE, OTHER ==
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
[2019-07-05 12:24] VITALS: BP 110/76
== END 2019-07-05 10:26 | disposition home or self-care (01) ==
LOC: SC 10:25
PROVIDERS: ATTEND Nurse Practitioner Family
DX: G47.10 Hypersomnia, unspecified (principal); G47.8 Other sleep disorders; R41.89 Other symptoms and signs involving cognitive functions and awareness; R06.83 Snoring; Z87.891 Personal history of nicotine dependence; E66.3 Overweight; Z68.26 Body mass index [BMI] 26.0-26.9, adult
CPT/HCPCS: 99204; G0463; 99212

== ENCOUNTER 2020-01-20 13:34 | Outpatient (CLI) | payer MEDICARE, OTHER ==
[2020-01-20 20:33] LABS: ALBUMIN 3.9 g/dL (3.2-5.5); ALBUMIN/GLOBULIN RATIO 1.5 (1.0-2.2); BILIRUBIN,TOTAL 0.5 mg/dL (0.2-1.0); CALCIUM 8.9 mg/dL (8.5-10.3); CREATININE 0.6 mg/dL (0.4-1.0); TOTAL PROTEIN 6.5 g/dL (6.7-8.2)
== END 2020-01-20 13:35 | disposition home or self-care (01) ==
LOC: LAB.S 13:34
PROVIDERS: ATTEND Nurse Practitioner Family
DX: M81.0 Age-related osteoporosis without current pathological fracture (principal)
CPT/HCPCS: 36415; 80053; 82306

== ENCOUNTER 2020-08-03 15:52 | Outpatient (CLI) | payer MEDICARE, OTHER ==
[2020-08-03 16:47] VITALS: BP 133/82
--- NOTE | 2020-08-03 16:47 | SLEEP CARE CONSULTATION ---
Information from patient questionnaire entered by Santos Morales. I have reviewed and concur with the information entered by Santos Morales. This document represents the service I personally performed and the decisions made by me, Sirena Escalona ARNP. History of Present Illness Service Date and Time: 08/03/2020 1552 Reason for follow up: annual (Last seen 06/2019 - restart process) Prior sleep studies: No HPI additional information: I had the pleasure of seeing NEENA LEVIN today regarding the possibility of her having a sleep disorder. She started this process in June 2019 but was unable to get a sleep study at that time. She returns today to restart the process. Her current complaints are snoring, she has trouble getting enough sleep, she wakes up frequently to go to the bathroom, unrefreshed sleep, fatigue and sleepiness some days. She wakes up often with morning headaches and has a history of migraines. She averages 4-5 hours and sometimes she gets 6-7 hours of sleep. She falls asleep easily in a car when a passenger. She has not woke up choking and gasping for air. She does not take naps. She has a history of a pacemaker for sick sinus syndrome, has atrial fibrillation, hypertension, mitral valve repair heart surgery, hip and knee surgeries as well as eye surgeries. Sleep Study - Results Prior sleep studies: No Subjective Initial [place] Sleepiness Scale score: 7 (in 2019) Current [place] Sleepiness Scale score: 6 Allergies and Home Medications Drug allergies reviewed: Yes (see list in chart) Home medication list reviewed: Yes (no changes) Review of Systems Review of systems same as previous: Yes (no changes, got Covid vaccination) Physical Exam Blood Pressure: 133/82 Cuff size: wrist Heart Rate: 68 O2 Saturation: 96 Height: 5 ft 6 in Weight: 165 lb Body Mass Index: 26.6 BMI Classification: Overweight Impression and Plan 1. Suspected Obstructive Sleep Apnea-Hypopnea Syndrome, as suggested by a history of snoring, morning headache, frequent awakening during the night, unrefreshed sleep, cognitive impairment, and excessive daytime sleepiness. She has a past medical history that includes hypertension, atrial fibrillation and mitral valve repair. I recommend proceeding to polysomnography to confirm the diagnosis and to assess severity. If the patient has significant sleep disordered breathing, a manual CPAP titration study will also be performed to find the optimal treatment pressure. I informed the patient of what the sleep studies involve and after some discussion, obtained agreement to proceed. The pathophysiology of obstructive sleep apnea-hypopnea syndrome was discussed with the patient and health risks of cardiovascular and cerebrovascular disease if not treated. Risks of drowsy driving discussed in detail and patient advised to avoid long distance driving and to trap puller at the first sign of drowsiness. Patient agreed to plan. * Schedule polysomnography +- manual CPAP titration study and return in 1-2 weeks after the study to discuss result and initiate therapy. * Avoid long distance driving or driving when feeling sleepy. * Avoid alcohol, sedative and muscle relaxant around bedtime. * Attempt to lose weight. * Review instructions provided by trained office staff on how to prepare for the sleep study. * Return for follow-up after sleep study completed. Counseling Topics: Weight control Visit Type: In Office Time Spent with Patient (minutes): 30 Provider Statement: I spent 100% of the Face to Face Visit with the patient with greater than 50% spent counseling the patient and coordination of care.
== END 2020-08-03 15:53 | disposition home or self-care (01) ==
LOC: SC 15:52
PROVIDERS: ATTEND Nurse Practitioner Family
DX: G47.10 Hypersomnia, unspecified (principal); R51.9 Headache, unspecified; G47.8 Other sleep disorders; R41.89 Other symptoms and signs involving cognitive functions and awareness; R06.83 Snoring; E66.3 Overweight; Z68.26 Body mass index [BMI] 26.0-26.9, adult
CPT/HCPCS: 99203; G0463; 99212

== ENCOUNTER 2020-10-10 14:12 | Outpatient (CLI) | payer MEDICARE, OTHER ==
--- NOTE | 2020-10-10 15:04 | SLEEP CARE CONSULTATION ---
Information from patient questionnaire entered by Genevieve Rowan. I have reviewed and concur with the information entered by Genevieve Rowan. This document represents the service I personally performed and the decisions made by , Sirena Escalona ARNP. History of Present Illness Service Date and Time: 10/10/2020 141 Initial [place] Sleepiness Scale score: 7 (in 2019) Current [place] Sleepiness Scale score: 8 Additional HPI information: NEENA LEVIN returns for follow up and results of the recently performed polysomnography at [facility] in [place]. I explained the pathophysiology behind obstructive sleep apnea. We then spent quite a bit of time discussing different treatment options. For mild obstructive sleep apnea, surgery and oral appliance are alternatives to nasal CPAP therapy but in moderate or severe cases, nasal CPAP is the most effective and reliable treatment. Because apnea is primarily in supine position, then positional management therapy could be effective. Methods discussed such as positioning with pillows, using a T-shirt with tennis balls in the back, and shown commercial products that have a pillow format on back to prevent supine sleep. I reviewed the impact of weight changes on sleep apnea and strongly recommended losing weight. After some discussion, the patient opted to go with the nasal CPAP therapy. Nasal autoCPAP set at 4-15 cmH20 will be ordered with rationale explained. A manual titration study will be ordered if unable to find optimal pressure with office adjustments. I explained how CPAP machine works with sample devices Resp[employer]ics Dreamstation and [employer] [id number] and what to expect when using the machine. Using CPAP every night in order to get used to it was emphasized. Patient advised to put CPAP mask on before getting into bed so as not to fall asleep without CPAP. To assist acclimation to CPAP use, it could also be used for a short time during day while reading or watching TV. The patient was instructed to call the CPAP supplier to discuss any mechanical problem that may occur. If the mask given is uncomfortable or is difficult to keep on through the night even with adjustment, contact the CPAP supplier as many will replace with another mask style if notified before 30 days. If snoring or perceives is not getting enough air or too much air from the machine, notify this office. AAS patient education PAP tips reviewed and given to patient. Patient does not drink alcohol. Patient was cautioned about risks of drowsy driving until sleepiness symptoms resolve. Sleep Study - Results Type of Sleep Study: Pol[facility]omnography ([facility]) Prior sleep studies: No Polysomnography/Home Sleep Study results: INTERPRETATION: 1t This study found moderate obstructive sleep apnea with an apnea-hypopnaa lndex: of 24.4/hour and a minimum oxygen saturation of 77%. The baseline oxygen saturation was sometimes running somewhat low, mainly during REM. Allergies and Home Medications Home medication list reviewed: Yes (no changes) Review of Systems Review of systems same as previous: Yes (no changes) Physical Exam Heart Rate: 68 O2 Saturation: 93 Height: 5 ft 6 in Weight: 165 lb Body Mass Index: 26.6 BMI Classification: Overweight Impression and Plan 1. Obstructive Sleep Apnea-Hypopnea Syndrome, moderate, with lowest oxygen saturation of 77%. Obviously this is the cause of the patients symptoms of unrefreshed sleep, and excessive daytime sleepiness. Positive pressure therapy could benefit heart arrhythmia, hypertension and cardiac disease. As mentioned above, the patient will be started on nasal autoCPAP therapy with pressure set at 4-15 cmH2O. A manual titration study will be completed if unable to find optimal treatment pressure with office adjustments. Compliance guidelines also reviewed. A copy of compliance guidelines will be given for reference at check out. Because the apnea is more severe supine, I instructed to avoid sleeping supine using pillow positioning until able to start CPAP use. * Nasal auto CPAP therapy, pressure at 4-15 cm H2O. * Attempt to lose weight. * Avoid alcohol consumption near bedtime. * Avoid supine sleep until using CPAP. * The patient is again cautioned about driving until sleepiness completely resolves. * Return one month after CPAP obtained. I will assess response to therapy and compliance at that time. Counseling Topics: Weight loss health impact Visit Type: In Office Time Spent with Patient (minutes): 27 Provider Statement: I spent 100% of the Face to Face Visit with the patient with greater than 50% spent counseling the patient and coordination of care.
== END 2020-10-10 14:13 | disposition home or self-care (01) ==
LOC: SC 14:12
PROVIDERS: ATTEND Nurse Practitioner Family
DX: G47.33 Obstructive sleep apnea (adult) (pediatric) (principal); E66.3 Overweight; Z68.26 Body mass index [BMI] 26.0-26.9, adult
CPT/HCPCS: 99213; G0463; 99212

== ENCOUNTER 2020-10-26 10:15 | Outpatient (CLI) | payer MEDICARE, OTHER ==
--- NOTE | 2020-10-26 10:56 | SLEEP CARE CONSULTATION ---
Information from patient questionnaire entered by Genevieve Rowan. I have reviewed and concur with the information entered by Genevieve Rowan. This document represents the service I personally performed and the decisions made by , Sirena Escalona ARNP. History of Present Illness Service Date and Time: 10/26/2020 1015 Previous diagnosis: Moderate, Obstructive Sleep Apnea-Hypopnea Syndrome AHI: 24.4 Reason for follow up: other (2 week to discuss surgery) Equipment type: CPAP Equipment obtained from: Other ([facility]; got initial supplies) Mask style: Nasal (with one strap around back of head and hose in front) Backup mask available: No (will keep old mask when replaced) Last cushion change: new mask Prior sleep studies: Yes Year and Where: 2020 Sleep Type of Sleep Study: Polysomnography HPI additional information: NEENA LEVIN was diagnosed to have moderate, AHI 24.4, obstructive sleep apnea-hypopnea syndrome and returned today for CPAP therapy 2 week follow-up to discuss Inspire surgery. She has had recent eye surgery. When the CPAP was set up the tax assistant was not very helpful on set up and she has been slow on starting it. She has a friend assist her and she was able to finally started after week of having the machine. She has noticed some increasing pain on her left scalp. She has postherpetic neuralgia on the left side of her scalp/face. She has been on Gabapentin for a long time but has been cutting back her dose and is thinking of stopping it altogether. She has only been using the CPAP for the last 4-5 days. She is concerned that her postherpetic neuralgia pain might increase. She has noticed some increase in it over the last 4 to 5 days. She is not sure if it is because she has cut back on her gabapentin or because she is using the CPAP. She talked to a family member who asked her if she knew about Inspire surgery of an implantable device. She comes in to ask about this as well as the neuralgia pain. CPAP Compliance Data - Data Reviewed with Patient Average duration of nightly device use: 6 hr 9 min Compliance rate %: 57.1 Current pressure setting (cmH2O): 4-15 Humidity settin Heated hose settin Average residual AHI: 7.0 Average large leak: 3 min Oxygen usage: Continuous Subjective Missed days of use due to: reports: other Patient concerns: reports: aerophagia, condensation in mask/hose, dry mouth, nose, throat (resolved with using the humidifier), other (neuralgia irritation with headgear use). denies: mask discomfort, air blowing in eyes, mask leak noise, nasal congestion, epistaxis Observed to snore while using device: No Current pressure setting perceived as: comfortable On therapy, patient: denies: sleeping better, awakening more refreshed, being more awake and alert during the day, more rested overall, drowsiness while driving Initial [place] Sleepiness Scale score: 7 (in 2020) Current [place] Sleepiness Scale score: 5 Allergies and Home Medications Drug allergies reviewed: Yes (no changes) Review of Systems Review of systems same as previous: Yes (no changes) Physical Exam Heart Rate: 70 O2 Saturation: 97 Height: 5 ft 6 in Weight: 163 lb Body Mass Index: 26.3 BMI Classification: Overweight Impression and Plan 1. Obstructive Sleep Apnea-Hypopnea Syndrome, moderate, with fair treatment compliance and fair apnea control with elevated residual AHI. Patient has only used her CPAP for the last for 4-5 days which I do not feel that we have adequate information for any adjustments today. She has not noted any improvement or changes except for some increasing post herpetic neuralgia pain of her left scalp moving into her face. We discussed that she should give the CPAP therapy some more time before we feel it is not going to work due to her pain. At that time we can do a referral for Inspire therapy evaluation if she still would like to do this. She does have a pacemaker in place which may or may not disqualify her for a Inspire device. Patient voiced understanding and agreement with this plan of care. Patient's apnea severity and rationale for treatment to reduce apnea, improve sleep quality and reduce cardiovascular and cerebrovascular events was reviewed. I also reviewed the benefit of consistent device use of CPAP for hypertension, cardiac disease, and arrhythmia. * Continue auto CPAP pressure at 4-15 cmH2O * Notify me if snoring with mask or feeling that the pressure is too much or too little * Attempt to lose weight * Call this office if any problems using CPAP * Return for follow up in 1-2 months, or sooner if concerns arise Counseling Topics: Spare mask, Weight loss health impact Visit Type: In Office Time Spent with Patient (minutes): 29 Provider Statement: I spent 100% of the Face to Face Visit with the patient with greater than 50% spent counseling the patient and coordination of care.
== END 2020-10-26 10:16 | disposition home or self-care (01) ==
LOC: SC 10:15
PROVIDERS: ATTEND Nurse Practitioner Family
DX: G47.33 Obstructive sleep apnea (adult) (pediatric) (principal); E66.3 Overweight; Z68.26 Body mass index [BMI] 26.0-26.9, adult
CPT/HCPCS: 99213; G0463; 99212

== ENCOUNTER 2020-11-28 10:12 | Outpatient (CLI) | payer MEDICARE, OTHER ==
--- NOTE | 2020-11-28 11:12 | SLEEP CARE CONSULTATION ---
Information from patient questionnaire entered by Genevieve Rowan. I have reviewed and concur with the information entered by Genevieve Rowan. This document represents the service I personally performed and the decisions made by , Sirena Escalona ARNP. History of Present Illness Service Date and Time: 11/28/2020 1012 Previous diagnosis: Moderate, Obstructive Sleep Apnea-Hypopnea Syndrome AHI: 24.4 (in 2020) Reason for follow up: first compliance Equipment type: CPAP Equipment obtained from: Other ([id number]; got initial supplies) Mask style: Nasal (with one strap around back of head and hose in front) Backup mask available: No (will need to keep old mask when replaced) Last cushion change: 6 days ago Prior sleep studies: Yes Year and Where: 2020 Sleep Type of Sleep Study: Polysomnography HPI additional information: NEENA LEVIN was diagnosed to have moderate, AHI 24.4, obstructive sleep apnea-hypopnea syndrome and returned today for CPAP therapy first compliance follow-up. CPAP Compliance Data - Data Reviewed with Patient Average duration of nightly device use: 6 hr 43 min Compliance rate %: 96.7 Current pressure setting (cmH2O): 4-15 (median 7.6, avg 11.0, max 11.5) Humidity settin Heated hose settin Average residual AHI: 8.2 Central apnea: 1.0 Obstructive apnea: 2.0 Hypopnea: 5.2 Average large leak: 17 min 44 sec Subjective Patient concerns: reports: mask discomfort, mask leak noise. denies: aerophagia, air blowing in eyes, condensation in mask/hose, nasal congestion, dry mouth, nose, throat, epistaxis, other Observed to snore while using device: No Current pressure setting perceived as: comfortable On therapy, patient: reports: other (has not seen a difference in how she sleeps or feeling more rested). denies: drowsiness while driving Initial [place] Sleepiness Scale score: 7 (in 2019) Current [place] Sleepiness Scale score: 7 Allergies and Home Medications Home medication list reviewed: Yes (no changes) Review of Systems Review of systems same as previous: Yes (no changes) Physical Exam Heart Rate: 70 O2 Saturation: 96 Height: 5 ft 6 in Weight: 164 lb Body Mass Index: 26.4 BMI Classification: Overweight Impression and Plan 1. Obstructive Sleep Apnea-Hypopnea Syndrome, moderate, with good treatment com pliance and fair apnea control with mild elevation of residual AHI. Patient is not feeling any improvement of her sleep and feeling rested. She still has long awakening during the night. I encouraged her to continue use as sometimes it does take time to feel difference and also since we have not gotten good apnea control yet. She voiced understanding. The patients pressure will be changed to autoCPAP 8-12 cmH20 for elevation of residual AHI. Patient advised to contact me if pressure change is uncomfortable so that it can be adjusted. Goals for apnea control discussed. Patient has been able to tolerate her current nasal cushion mask but it will come off sometimes. She thinks it is some thing that she can deal with at this time. Patient is aware of the recall on the Dreamstation, she talked to her [employer] support representative about it and she will contact them to make sure she is registered. Patient's apnea severity and rationale for treatment to reduce apnea, improve sleep quality and reduce cardiovascular and cerebrovascular events was reviewed. I also reviewed the benefit of consistent device use of CPAP for hypertension, cardiac disease, and arrhythmia. * Change auto CPAP pressure to 8-12 cmH2O * Notify me if snoring with mask or feeling that the pressure is too much or too little * Attempt to lose weight * Call this office if any problems using CPAP * Return for follow up in 1-2 months, or sooner if concerns arise Counseling Topics: Spare mask, Weight loss health impact Visit Type: In Office Time Spent with Patient (minutes): 25 Provider Statement: I spent 100% of the Face to Face Visit with the patient with greater than 50% spent counseling the patient and coordination of care.
== END 2020-11-28 10:13 | disposition home or self-care (01) ==
LOC: SC 10:12
PROVIDERS: ATTEND Nurse Practitioner Family
DX: G47.33 Obstructive sleep apnea (adult) (pediatric) (principal)
CPT/HCPCS: 99213; G0463; 99212

== ENCOUNTER 2021-03-20 12:57 | Outpatient (CLI) | payer MEDICARE, OTHER ==
--- NOTE | 2021-03-21 09:03 | Mammography Report ---
BILATERAL DIGITAL SCREENING MAMMOGRAM 3D/2D: 03/20/2021 CLINICAL: Routine screening. Comparison is made to exams dated: 11/07/2014 mammogram and 06/16/2013 mammogram - [facility]. There are scattered fibroglandular elements in both breasts. No significant masses, calcifications, or other findings are seen in either breast. There has been no significant interval change. IMPRESSION: NEGATIVE There is no mammographic evidence of malignancy. A 1 year screening mammogram is recommended. This exam was interpreted at Station ID: [id number]. NOTE: For mammograms, a report in lay terms will be sent to the patient. Approximately 15% of breast malignancies will not be visualized mammographically. In the management of a palpable breast mass, a negative mammogram must not discourage biopsy of a clinically suspicious lesion. Electronically Signed By: Mario Hui M.D. slc/penrad:03/20/2021 16:25:00 ACR BI-RADS Category 1: Negative 3341F PARENCHYMAL PATTERN: (A) - The breast(s) demonstrate(s) scattered fibroglandular densities. BI-RADS CATEGORY: (1) - 1 RECOMMENDATION: (ANNUAL) - Recommend routine annual screening mammography. [id number] 1 year screening LATERALITY: (B)
== END 2021-03-20 12:58 | disposition home or self-care (01) ==
LOC: DI 12:57
PROVIDERS: ATTEND Family Medicine
DX: Z12.31 Encounter for screening mammogram for malignant neoplasm of breast (principal)

== ENCOUNTER 2021-08-28 12:56 | Outpatient (CLI) | payer MEDICARE, OTHER ==
--- NOTE | 2021-08-28 13:46 | SLEEP CARE CONSULTATION ---
Information from patient questionnaire entered by Nikki Wallace MA. I have reviewed and concur with the information entered by Nikki Wallace MA. This document represents the service I personally performed and the decisions made by , Sirena Escalona ARNP. History of Present Illness Service Date and Time: 08/28/2021 1256 Previous diagnosis: Moderate, Obstructive Sleep Apnea-Hypopnea Syndrome AHI: 24.4 (in 2020) Reason for follow up: other (9 MONTH F/U, INSPIRE, (REFERRAL)) Equipment type: CPAP Equipment obtained from: Other ([employer]; got initial supplies) Mask style: Nasal (with one strap around back of head and hose in front) Prior sleep studies: Yes Year and Where: 2020mi Sleep Type of Sleep Study: Polysomnography HPI additional information: NEENA LEVIN was diagnosed to have moderate, AHI 24.4, obstructive sleep apnea-hypopnea syndrome and returned today for CPAP therapy 9 month follow-up. Sleep Study - Results Type of Sleep Study: Polysomnography Prior sleep studies: Yes Year and Where: 2020 [facility] Sleep CPAP Compliance Data Compliance data discussion: She has not been using her CPAP because of the recall on her device. She has been sleeping in her recliner with her head elevated. She has not heard from Fidel. Subjective Current pressure setting perceived as: comfortable On therapy, patient: reports: sleeping better, awakening more refreshed, being more awake and alert during the day, more rested overall. denies: drowsiness while driving Initial [place] Sleepiness Scale score: 7 (in 2019) Current [place] Sleepiness Scale score: 5 Allergies and Home Medications Home medication list reviewed: Yes (ashwaganda ) Allergy and home medication list: Allergies bee pollen Allergy (Verified 02/20/19 17:27) Anaphylaxis Beef Containing Products Allergy (Verified 02/20/19 17:27) Unknown guaifenesin [From Mucinex] Allergy (Verified 02/20/19 17:27) Rash lactase [From Dairy Aid] Allergy (Verified 02/20/19 17:27) Hives Penicillins Allergy (Verified 02/20/19 17:27) Rash Sulfa (Sulfonamide Antibiotics) Allergy (Verified 02/20/19 17:27) Edema Review of Systems Review of systems same as previous: Yes (no changes) Physical Exam Vital signs obtained and entered by: WAYNE GARCIA Blood Pressure: 120/69 (right, resp 18, pulse 61,) Cuff size: wrist Heart Rate: 70 O2 Saturation: 98 (n94 mask) Height: 5 ft 6 in Weight: 154 lb (with clothes, per patient.) Body Mass Index: 24.8 BMI Classification: Healthy weight Impression and Plan 1. Obstructive Sleep Apnea-Hypopnea Syndrome, moderate. Patient has not been using her CPAP due to recall on the device. She comes in today to discuss referral for Inspire implant therapy to treat her sleep apnea. I will write a referral for her to see Dr. Arzola for evaluation. I also discussed with patient that she can obtain a portable CPAP if she is able to pay for it since insurance companies generally do not. She would like to look into this and I wrote a prescription for the portable CPAP. She will shop for a portable device and then she will let us know what she is able or decides to do. Patient's apnea severity and rationale for treatment to reduce apnea, improve sleep quality and reduce cardiovascular and cerebrovascular events was reviewed. I also reviewed the benefit of consistent device use of CPAP for hypertension, cardiac disease and arrhythmia. Patient was encouraged to lose weight for her overall health and to reduce apneas. * Continue auto CPAP pressure at 4-15 cmH2O * Prescription for portable CPAP machine * Referral to Dr. Arzola for Inspire implant evaluation/treatment * Notify me if snoring with mask or feeling that the pressure is too much or too little * Attempt to lose weight * Call this office if any problems using CPAP * Return for follow up when patient gets new portable machine or Fidel replacement, or sooner if concerns arise Counseling Topics: Weight loss health impact Visit Type: In Office Time Spent with Patient (minutes): 26 Provider Statement: I spent 100% of the Face to Face Visit with the patient with greater than 50% spent counseling the patient and coordination of care.
[2021-08-28 13:47] VITALS: BP 120/69
== END 2021-08-28 12:57 | disposition home or self-care (01) ==
LOC: SC 12:56
PROVIDERS: ATTEND Nurse Practitioner Family
DX: G47.33 Obstructive sleep apnea (adult) (pediatric) (principal)
CPT/HCPCS: 99213; G0463; 99212

== ENCOUNTER 2022-02-06 08:00 | Outpatient (CLI) | payer MEDICARE, OTHER | END 2022-02-06 23:59 | disposition home or self-care (01) | LOC: LAB.S 08:00 | PROVIDERS: ATTEND Physician Assistant | DX: R30.0 Dysuria (principal) | CPT/HCPCS: 87086; 87181 ==

== ENCOUNTER 2022-06-12 09:58 | Emergency (ER) | payer MEDICARE, OTHER ==
[2022-06-12 10:45] LABS: BASOPHILS # (AUTO) 0.1 10^3/uL (0.0-0.1); BASOPHILS % (AUTO) 1.2 %; EOSINOPHILS # (AUTO) 0.1 10^3/uL (0.0-0.7); HCT - HEMATOCRIT 43.7 % (37.0-47.0); HGB - HEMOGLOBIN 14.1 g/dL (12.0-16.0); LYMPHOCYTES % (AUTO) 16.4 %; MEAN CORPUSCULAR HEMOGLOBIN 30.7 pg (27.0-31.0); MEAN CORPUSCULAR HGB CONC 32.3 g/dL (32.0-36.0); MEAN PLATELET VOLUME 9.6 fL (7.9-10.8); MONOCYTES # (AUTO) 0.7 10^3/uL (0.0-1.0); MONOCYTES % (AUTO) 11.8 %; NEUTROPHILS % (AUTO) 68.4 %; PLT - PLATELET COUNT 239 10^3/uL (130-450); RED CELL DISTRIBUTION WIDTH 12.4 % (12.0-15.0); WHITE BLOOD COUNT 5.9 x10^3/uL (4.8-10.8)
[2022-06-12 10:59] LABS: ALBUMIN 4.3 g/dL (3.2-5.5); ALBUMIN/GLOBULIN RATIO 1.7 (1.0-2.2); BILIRUBIN,TOTAL 1.1 mg/dL (0.2-1.0); CALCIUM 8.8 mg/dL (8.5-10.3); CREATININE 0.5 mg/dL (0.4-1.0); POTASSIUM 3.8 mmol/L (3.5-5.0); TOTAL PROTEIN 6.9 g/dL (6.7-8.2)
--- NOTE | 2022-06-12 13:14 | ED Physician Documentation ---
History of Present Illness - Stated complaint Stated Complaint: WEAK/DIZZINESS - Chief complaint Chief Complaint: Neuro - History obtained from History obtained from: Patient - Additonal information Additional information: Patient is an 82-year-old with a history of a DVT on Eliquis presenting for evaluation of feeling lightheaded this morning. She says she woke up and got out of bed and started feeling very lightheaded. She had a brief moment where she felt the room was spinning for less than a minute but that quickly resolved. She states her symptoms lasted approximately 30 minutes and resolved after she drank an electrolyte drink. She denies any recent falls or injuries. She feels back to her normal self since then. She denies any visual disturbances, speech difficulties, focal weakness, chest pain or difficulty breathing. She denies recently feeling ill. 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 : Chronic bladder infection HEENT: Chronic vision loss, Glaucoma, Dental implants, Other Psych: None Musculoskeletal: Osteoarthritis, Fatigue Derm: Herpes zoster - Past Surgical History Past Surgical History: Yes General: Appendectomy, Colonoscopy, Other Ortho: Knee replacement, Other /FIELD ARTILLERY OPERATIONS SPECIALIST:  Cardiovascular: Pacemaker HEENT: Cataracts, Tonsil/Adenoidectomy - Present Medications Home Medications: Ambulatory Orders Medication Instructions Recorded Confirmed Brimonidine Tartrate/Timolol 1 drops EACHEYE BID 11/08/13 02/05/17 [Combigan 0.2%-0.5% Eye Drops] Aspirin 81 mg ORAL DAILY 06/21/14 02/05/17 Cholecalciferol (Vitamin D3) 1,000 unit PO DAILY 03/02/16 02/05/17 [Vitamin D3] Latanoprost 1 drops EACHEYE DAILY 07/08/16 02/05/17 Loteprednol Etabonate [Lotemax] 1 drops LEFTEYE DAILY 07/08/16 02/05/17 Cranberry Fruit Extract [Cranberry] 200 mg PO DAILY 07/11/16 02/05/17 D-Mannose 300 mg PO DAILY 07/11/16 02/05/17 Gabapentin 300 mg PO QDLUNCH 07/11/16 02/05/17 Gabapentin 600 mg PO TID 07/11/16 02/05/17 Magnesium Oxide [Magnesium] 400 mg PO TID 07/11/16 02/05/17 Melatonin 3 mg PO QPM 07/11/16 02/05/17 Propylene Glycol [Systane Balance] 1 drops EACHEYE DAILY 07/11/16 02/05/17 Red Yeast Rice 1,200 mg PO BID 07/11/16 02/05/17 carBAMazepine [Carbamazepine ER] 100 mg PO TID 07/11/16 02/05/17 Calcium Citrate/Vitamin D3 500 mg PO BID 02/04/17 02/05/17 [Calcium Citrate-Vit D3 Tablet] Lutein/Zeaxanthin [Ocuvite Lutein 1 tab PO DAILY 02/04/17 02/05/17 25-5 mg Softgel] Metoprolol Succinate 25 mg PO QPM 02/04/17 02/05/17 Ubidecarenone [Co Q-10] 300 mg PO DAILY 02/04/17 02/05/17 Brimonidine Tartrate/Timolol 06/24/17 [Combigan 0.2%-0.5% Eye Drops] cephALEXin [Keflex] 500 mg PO Q6HR #20 capsule 02/05/18 Doxepin [SINEquan] 10 mg PO TID PRN #30 capsule 02/20/19 predniSONE [Deltasone] 60 mg PO DAILY 5 Days #15 tablet 02/20/19 Oxycodone HCl/Acetaminophen 1 - 2 each PO Q6H PRN #14 tablet 05/06/19 [Percocet 5-325 mg Tablet] - Allergies Allergies/Adverse Reactions: Allergies Allergy/AdvReac Type Severity Reaction Status Date / Time bee pollen Allergy Anaphylaxis Verified 06/12/22 10:19 guaifenesin [From Mucinex] Allergy Rash Verified 06/12/22 10:19 Penicillins Allergy Rash Verified 06/12/22 10:19 Sulfa (Sulfonamide Allergy Edema Verified 06/12/22 10:19 Antibiotics) - Social History Does the pt smoke?: No Smoking Status: Never smoker Does the pt drink ETOH?: No Does the pt have substance abuse?: Yes - Immunizations Immunizations are current?: No Immunizations: TDAP >10years/unknown - POLST Patient has POLST: No PD ED PE NORMAL - General General: Alert and oriented X 3, No acute distress, Well developed/nourished - HEENT HEENT: Atraumatic - Neck Neck: Supple, no meningeal sign - Cardiac Cardiac: RRR - Respiratory Respiratory: No respiratory distress, Clear bilaterally - Abdomen Abdomen: Soft, Non tender - Derm Derm: Warm and dry - Extremities Extremities: No edema - Neuro Neuro: Alert and oriented X 3, water filterer 2-12 intact, No motor deficit, No sensory deficit, Normal speech, Other (Normal [id number] bilaterally, normal gait) Results - Vitals Vitals: Vital Signs - 24 hr 06/12/22 06/12/22 06/12/22 10:04 12:18 13:02 Temperature 36.6 C Heart Rate 70 70 Heart Rate [ 71 Sitting] Heart Rate [ 70 Standing] Heart Rate [ 70 Supine] Respiratory 16 17 Rate Blood Pressure 124/70 137/78 H Blood Pressure 125/77 [Sitting] Blood Pressure 115/77 [Standing] Blood Pressure 121/70 [Supine] O2 Saturation 97 100 06/12/22 14:03 Temperature Heart Rate 70 Heart Rate [ Sitting] Heart Rate [ Standing] Heart Rate [ Supine] Respiratory 12 Rate Blood Pressure 115/72 Blood Pressure [Sitting] Blood Pressure [Standing] Blood Pressure [Supine] O2 Saturation 100 Oxygen O2 Source [Without Activity] Room air O2 Source Room air - EKG (time done) 1025 Rate: Rate (enter#) (70) Rhythm: NSR Ischemia: No: ST elevation c/w ischemia - Labs Labs: Laboratory Tests 06/12/22 06/12/22 10:38 10:38 WBC 5.9 RBC 4.60 Hgb 14.1 Hct 43.7 MCV 95.0 MCH 30.7 MCHC 32.3 RDW 12.4 Plt Count 239 MPV 9.6 Neut # (Auto) 4.0 Lymph # (Auto) 1.0 L Ransom # (Auto) 0.7 Eos # (Auto) 0.1 Baso # (Auto) 0.1 Absolute Nucleated RBC 0.00 Nucleated RBC % 0.0 Sodium 133 L Potassium 3.8 Chloride 96 L Carbon Dioxide 25 Anion Gap 12.0 BUN 11 Creatinine 0.5 Estimated GFR (MDRD) 118 Glucose 97 Calcium 8.8 Total Bilirubin 1.1 H AST 18 ALT 14 Alkaline Phosphatase 26 L Total Protein 6.9 Albumin 4.3 Globulin 2.6 Albumin/Globulin Ratio 1.7 Lipase 38 PD Medical Decision Making - ED course Complexity details: reviewed results, re-evaluated patient, d/w patient, d/w family ED course: Patient presenting for evaluation of feeling lightheaded this morning and brief room spinning sensation. Her symptoms have since resolved. She denies other symptoms to suggest a stroke such as difficulties with coordination or focal weakness. I considered a CT of her brain but She never had a headache and did not hit her head and Her neuro exam is normal here.. She is not orthostatic. Her labs and EKG are also reviewed without significant findings. She again has been asymptomatic for several hours.No chest pain to suggest ACS. As patient has been symptom-free for several hours I feel she is appropriate for discharge home. Patient and are counseled on concerning symptoms to return for. Departure - Departure Disposition: 01 Home, Self Care Clinical Impression: Lightheadedness Condition: Stable Instructions: ED Dizziness UKO Comments: The exact cause of your symptoms from this morning is unclear. Your labs are reassuring with no signs of electrolyte issues Or anemia. Please continue to stay hydrated and take it easy. If you have any recurrence of your symptoms or any new symptoms such as vomiting, headache, Weakness on one side of your body, trouble speaking or have any other concerns please consider return to the emergency department. Discharge Date/Time: 06/12/22 14:21
[2022-06-12 14:04] VITALS: BP 115/72
== END 2022-06-12 14:21 | disposition home or self-care (01) ==
LOC: ED 09:58
DX: R42 Dizziness and giddiness (principal); I10 Essential (primary) hypertension; I48.91 Unspecified atrial fibrillation; Z86.718 Personal history of other venous thrombosis and embolism; Z79.01 Long term (current) use of anticoagulants
CPT/HCPCS: 36415; 80053; 83690; 85025; 93005; 99283

== ENCOUNTER 2023-12-14 17:02 | Emergency (ER) | payer MEDICARE, OTHER ==
[2023-12-14 17:14] VITALS: O2SAT 98
[2023-12-14] MEDS ORDERED: iohexoL-300 100 ML VIAL ONE (17:39)
--- NOTE | 2023-12-14 17:49 | ED Physician Documentation ---
History of Present Illness - Stated complaint Stated Complaint: BLURRY VISION/RT FOOT NUMB - Chief complaint Chief Complaint: General - History obtained from History obtained from: Patient - History of Present Illness Timing: Today - Additonal information Additional information: Patient is an 83-year-old female who presents to the emergency department stating that approximately 10 days ago she had about 1 minute of blurry vision in both eyes. She states that it was not limited to the inside, outside, upper portion or lower portion of her vision. She states it is the entirety of her visual field. She states that about 4 days ago she had about 1 minute of numbness in the right foot, this was all she was grocery shopping at the same grocery store. She states today she had about 5 minutes of blurred vision again. No headaches. No trauma. No fevers. No recent illnesses. She called her eye doctor who will see her on . She contacted her primary care doctor who sent her here for evaluation. She is on Eliquis for atrial fibrillation and has a pacemaker. No histories of stroke. No back pain. No falls. Fully asymptomatic now. 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 : Chronic bladder infection HEENT: Chronic vision loss, Glaucoma, Dental implants, Other Psych: None Musculoskeletal: Osteoarthritis, Fatigue Derm: Herpes zoster - Past Surgical History Past Surgical History: Yes General: Appendectomy, Colonoscopy, Other Ortho: Knee replacement, Other Cardiovascular: Pacemaker HEENT: Cataracts, Tonsil/Adenoidectomy - Present Medications Home Medications: Ambulatory Orders Medication Instructions Recorded Confirmed Brimonidine Tartrate/Timolol 1 drops EACHEYE BID 11/08/13 02/05/17 [Combigan 0.2%-0.5% Eye Drops] Aspirin 81 mg ORAL DAILY 06/21/14 02/05/17 Cholecalciferol (Vitamin D3) 1,000 unit PO DAILY 03/02/16 02/05/17 [Vitamin D3] Latanoprost 1 drops EACHEYE DAILY 07/08/16 02/05/17 Loteprednol Etabonate [Lotemax] 1 drops LEFTEYE DAILY 07/08/16 02/05/17 Cranberry Fruit Extract [Cranberry] 200 mg PO DAILY 07/11/16 02/05/17 D-Mannose 300 mg PO DAILY 07/11/16 02/05/17 Gabapentin 300 mg PO QDLUNCH 07/11/16 02/05/17 Gabapentin 600 mg PO TID 07/11/16 02/05/17 Magnesium Oxide [Magnesium] 400 mg PO TID 07/11/16 02/05/17 Melatonin 3 mg PO QPM 07/11/16 02/05/17 Propylene Glycol [Systane Balance] 1 drops EACHEYE DAILY 07/11/16 02/05/17 Red Yeast Rice 1,200 mg PO BID 07/11/16 02/05/17 carBAMazepine [Carbamazepine ER] 100 mg PO TID 07/11/16 02/05/17 Calcium Citrate/Vitamin D3 500 mg PO BID 02/04/17 02/05/17 [Calcium Citrate-Vit D3 Tablet] Lutein/Zeaxanthin [Ocuvite Lutein 1 tab PO DAILY 02/04/17 02/05/17 25-5 mg Softgel] Metoprolol Succinate 25 mg PO QPM 02/04/17 02/05/17 Ubidecarenone [Co Q-10] 300 mg PO DAILY 02/04/17 02/05/17 Brimonidine Tartrate/Timolol 06/24/17 [Combigan 0.2%-0.5% Eye Drops] cephALEXin [Keflex] 500 mg PO Q6HR #20 capsule 02/05/18 Doxepin [SINEquan] 10 mg PO TID PRN #30 capsule 02/20/19 predniSONE [Deltasone] 60 mg PO DAILY 5 Days #15 tablet 02/20/19 Oxycodone HCl/Acetaminophen 1 - 2 each PO Q6H PRN #14 tablet 05/06/19 [Percocet 5-325 mg Tablet] - Allergies Allergies/Adverse Reactions: Allergies Allergy/AdvReac Type Severity Reaction Status Date / Time bee pollen Allergy Anaphylaxis Verified 12/14/23 17:06 guaifenesin [From Mucinex] Allergy Rash Verified 12/14/23 17:06 Penicillins Allergy Rash Verified 12/14/23 17:06 Sulfa (Sulfonamide Allergy Edema Verified 12/14/23 17:06 Antibiotics) - Social History Does the pt smoke?: No Smoking Status: Never smoker Does the pt drink ETOH?: No Does the pt have substance abuse?: Yes - Immunizations Immunizations are current?: No Immunizations: TDAP >10years/unknown - POLST Patient has POLST: No PD ED PE NORMAL - Vitals Vital signs reviewed: Yes - General General: Alert and oriented X 3, No acute distress - HEENT HEENT: Atraumatic, PERRL, EOMI, Moist mucous membranes - Neck Neck: Supple, no meningeal sign, No bony TTP - Cardiac Cardiac: RRR, Strong equal pulses - Respiratory Respiratory: No respiratory distress, Clear bilaterally - Abdomen Abdomen: Soft, Non tender, Non distended - Back Back: No spinal TTP - Derm Derm: Warm and dry - Extremities Extremities: Normal ROM s pain, No edema, No calf tenderness / cord - Neuro Neuro: Alert and oriented X 3, 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 Relevant findings are: Rate: Rate (enter#) (81) Rhythm: Paced (atrial) [place]: Normal Intervals: Normal [place] QRS: Normal Ischemia: Normal ST segments - Labs Labs: Laboratory Tests 12/14/23 12/14/23 17:55 17:55 WBC 6.4 RBC 4.14 L Hgb 13.2 Hct 38.7 MCV 93.5 MCH 31.9 H MCHC 34.1 RDW 13.0 Plt Count 242 MPV 9.1 Neut # (Auto) 3.9 Lymph # (Auto) 1.2 L [place] # (Auto) 1.1 H Eos # (Auto) 0.2 Baso # (Auto) 0.1 Absolute Nucleated RBC 0.00 Nucleated RBC % 0.0 Sodium 137 Potassium 3.8 Chloride 103 Carbon Dioxide 28 Anion Gap 6.0 BUN 15 Creatinine 0.6 Estimated GFR (MDRD) 95 Glucose 101 Calcium 9.2 Total Bilirubin 0.3 AST 15 ALT 14 Alkaline Phosphatase 28 L Total Protein 5.9 L Albumin 4.0 Globulin 1.9 L Albumin/Globulin Ratio 2.1 Lipase 19 - Rads (name of study) CT head Relevant Findings:: Final report received, See rad report CT angio head and neck Relevant Findings:: Final report received, See rad report PD Medical Decision Making - ED course Complexity details: reviewed results, re-evaluated patient, considered differential, d/w patient ED course: 83-year-old female with paresthesia of the right lower extremity for approximately 1 minute 4 days ago, no recurrence of symptoms. No acute findings on head CT or CT angiogram head and neck. She also had 2 episodes of blurred vision over the past 10 days, unclear etiology. Recommend that she follow-up with her PCP and internet application developer for further care. Patient will continue her current medications at home. Patient is fully asymptomatic here. Recommend outpatient MRI. Patient counseled regarding signs and symptoms for which I believe and urgent re-evaluation would be necessary. Patient with good understanding of and agreement to plan and is comfortable going home at this time This document was made in part using voice recognition software. While efforts are made to proofread this document, sound alike and grammatical errors may occur. Departure - Departure Disposition: 01 Home, Self Care Clinical Impression: Vision changes, Paresthesia Condition: Good Instructions: ED Paraesthesias Follow-Up: JACOB PAUL MD [Primary Care Provider] - Within 1 week Comments: Your testing tonight does not show any acute abnormalities. Please follow-up with your doctor for further care. Your head CT and CT angiogram of your head and neck do not show any acute abnormalities. It is recommended you have an MRI with your doctor. Please return if you worsen. Please follow-up with your internet application developer for further evaluation of your eyes. Forms: PCP List Discharge Date/Time: 12/14/23 20:40
[2023-12-14 18:02] LABS: BASOPHILS # (AUTO) 0.1 10^3/uL (0.0-0.1); BASOPHILS % (AUTO) 0.9 %; EOSINOPHILS # (AUTO) 0.2 10^3/uL (0.0-0.7); EOSINOPHILS % (AUTO) 2.8 %; HCT - HEMATOCRIT 38.7 % (37.0-47.0); HGB - HEMOGLOBIN 13.2 g/dL (12.0-16.0); LYMPHOCYTES # (AUTO) 1.2 10^3/uL (1.5-3.5); LYMPHOCYTES % (AUTO) 18.7 %; MEAN CORPUSCULAR HEMOGLOBIN 31.9 pg (27.0-31.0); MEAN CORPUSCULAR HGB CONC 34.1 g/dL (32.0-36.0); MEAN CORPUSCULAR VOLUME 93.5 fL (81.0-99.0); MEAN PLATELET VOLUME 9.1 fL (7.9-10.8); MONOCYTES # (AUTO) 1.1 10^3/uL (0.0-1.0); NEUTROPHILS # (AUTO) 3.9 10^3/uL (1.5-6.6); NEUTROPHILS % (AUTO) 60.3 %; PLT - PLATELET COUNT 242 10^3/uL (130-450); RED BLOOD COUNT 4.14 10^6/uL (4.20-5.40); WHITE BLOOD COUNT 6.4 x10^3/uL (4.8-10.8)
[2023-12-14 18:30] LABS: ALBUMIN/GLOBULIN RATIO 2.1 (1.0-2.2); BILIRUBIN,TOTAL 0.3 mg/dL (0.2-1.0); CALCIUM 9.2 mg/dL (8.5-10.3); CREATININE 0.6 mg/dL (0.6-1.3); POTASSIUM 3.8 mmol/L (3.5-4.5); TOTAL PROTEIN 5.9 g/dL (6.4-8.9)
[2023-12-14 19:45] VITALS: BP 126/66
[2023-12-14] MEDS: iohexoL-300 100 ML VIAL IVP ONE (19:50)
--- NOTE | 2023-12-14 20:13 | CT Report ---
PROCEDURE: Head WO INDICATIONS: R foot numb 4 days ago, blurry vision today TECHNIQUE: Noncontrast 4.5 mm thick angled axial sections acquired from the foramen magnum to the vertex. For r adiation dose reduction, the following was used: automated exposure control, adjustment of mA and/or kV according to patient size. COMPARISON: CT head 03/06/2015. FINDINGS: Image quality: Diagnostic. CSF spaces: Basal cisterns are patent. No extra-axial fluid collections. Ventricles are normal in size and shape. Brain: No midline shift. No intracranial masses or hemorrhage. Snyder-white matter interface is norm al. Skull and face: Calvarium and visualized facial bones are intact, without suspicious lesions. Sinuses: Visualized sinuses and mastoids are clear. IMPRESSION: No acute intracranial pathology. Reviewed by: Stacy Gorman MD, PhD on 12/14/2023 8:11 PM PDT Approved by: Stacy Gorman MD, PhD on 12/14/2023 8:11 PM PDT Station ID: [id number]
--- NOTE | 2023-12-14 20:16 | CT Report ---
PROCEDURE: Angio Head/Neck INDICATIONS: R foot numb 4 days ago, blurry vision today TECHNIQUE: After the administration of intravenous contrast, 1 mm thick sections acquired from the aortic arch t hrough the [place]. 3-dimensional myuiylp-dizjciltx-jiycpsvban (MIP) and/or volume renderin g reformats were acquired of the central intracranial vasculature and neck separately. For radiation dose reduction, the following was used: automated exposure control, adjustment of mA and/or kV acco rding to patient size. CONTRAST: 80ml [id number] COMPARISON: Day CT head noncontrast 12/14/2023. FINDINGS: Image quality: Dental amalgam limits evaluation of surrounding soft tissue.. HEAD CT: CSF Spaces: Basal cisterns are patent. No extra-axial fluid collections. Ventricles are normal in size and shape. Brain: No significant abnormality is seen for scanning technique. Skull and face: Calvarium and visualized facial bones appear intact, without suspicious lesions. Sinuses: Visualized sinuses and mastoids are clear. HEAD CT ANGIOGRAPHY: Anterior circulation: Intracranial internal carotid arteries are normal in size and flow. The flow within the paired anterior cerebral arteries is normal and symmetric. The flow within the middle cer ebral arteries is normal and symmetric. The anterior communicating artery is not definitively seen. No aneurysms are seen. Posterior circulation: Visualized portions of the vertebral arteries demonstrate normal caliber, and join to form a normal appearing basilar artery. origin the bilateral x ray consultant. Flow within the po sterior cerebral arteries is normal and symmetric. No aneurysms are seen. NECK CT ANGIOGRAPHY: Carotid system: The great vessels demonstrate a conventional anatomy as they arise from the aortic a rch. The origins of the common carotid arteries appear patent. The common carotid arteries demonstr ate normal caliber and courses. The bifurcation regions are both widely patent. The internal caroti d arteries demonstrate normal calibers and courses. Posterior circulation: The origins of the vertebral arteries both appear widely patent. The more betancur perior extracranial portions of both vertebral arteries also demonstrate normal courses and calibers. They join to form a normal appearing basilar artery. Soft tissues: Visualized neck soft tissues demonstrate no suspicious abnormalities. Bones: No suspicious bony lesions. Visualized cervical spine appears normally aligned. IMPRESSION: No significant intracranial arterial abnormality is seen. No significant abnormality is seen within the arteries of the neck. The estimate of stenosis included in the report of the imaging study was calculated using the NASCET method Reviewed by: Stacy Gorman MD, PhD on 12/14/2023 8:15 PM PDT Approved by: Stacy Gorman MD, PhD on 12/14/2023 8:15 PM PDT Station ID: [id number]
== END 2023-12-14 20:40 | disposition home or self-care (01) ==
LOC: ED 17:02
DX: H53.8 Other visual disturbances (principal); R20.0 Anesthesia of skin; I10 Essential (primary) hypertension; I48.91 Unspecified atrial fibrillation; Z79.01 Long term (current) use of anticoagulants; Z86.010 Personal history of colon polyps; Z95.0 Presence of cardiac pacemaker; Z79.899 Other long term (current) drug therapy
CPT/HCPCS: 36415; 70450; 70496; 70498; 80053; 83690; 85025; 93005; 99283; 99284; Q9967